=== PATIENT | male | born 1955 | race Native Hawaiian/Other Pacific Islander ===

== ENCOUNTER 2018-11-07 05:39 | Day surgery (SDC) | payer MEDICARE ==
[2018-11-07] MEDS ORDERED: Lactated Ringers 1,000 ML IV SCH (06:30)
[2018-11-07] MEDS ORDERED: Lactated Ringers 1,000 ML IV ONE (06:37)
[2018-11-07] MEDS ORDERED: Xopenex 1.25 MG/0.5 ML UD NEBULE IH ONE ×2 (06:41→06:49)
[2018-11-07] MEDS ORDERED: Sodium Chloride 3 ML UD NEBULES IH SCH (06:45)
[2018-11-07] MEDS ORDERED: Sodium Chloride 3 ML UD NEBULES IH ONE (06:49)
[2018-11-07] MEDS ORDERED: DIPRIVAN 200 MG/20 ML IV ONE (07:42)
[2018-11-07] MEDS ORDERED: Ketamine HCl 50 MG/ML ONE (07:43)
[2018-11-07 08:41] VITALS: O2SAT 93
[2018-11-07 09:03] VITALS: BP 124/80; PULSE 80
--- NOTE | 2018-11-07 10:48 | OP ---
SURGERY DATE/TIME: 11/07/2018 0753 PREOPERATIVE DIAGNOSIS: Change in bowel habits. POSTOPERATIVE DIAGNOSIS: Diverticulosis otherwise normal colon. PROCEDURE: Colonoscopy. SURGEON: Dr. Rodriguez. ANESTHESIA: MAC. Medications given by anesthesia department. HISTORY: The patient is a 63 year-old white male patient now with change in bowel habits. He was brought in for colonoscopic evaluation. It was noted in the outpatient area that the patient's O2 saturations were in the mid to high 80's. The patient reports that he knows his O2 saturations have been low. He has been told by a pulmonary doctor that he needs to wear oxygen but he refuses to do so. We optimized his oxygen levels with oxygen and CPAP. I discussed with the patient and his and they wished to proceed with the procedure. DESCRIPTION OF PROCEDURE: We brought the patient to endoscopy room and the patient was on CPAP. Anesthesia was then induced. The patient saturations did drop significantly just prior to the above treatments however it rebounded nicely within a few moments. The patient was placed in left lateral decubitus position. A digital rectal examination was performed and revealed a large but smooth prostate with no nodules. No other masses were felt. The sphincter tone was normal. The flexible Olympus pediatric colonoscope was used to intubate the rectum. A view of the colon was developed sequentially to the cecum. Upon insertion and withdrawal, including a retroflex view in the rectum was noted scattered diverticula but no other mucosal lesions. The scope was removed from the patient who tolerated the procedure well and was sent back to OP recovery in good condition, stable on supplemental oxygen. The prep was noted to be fair.
== END 2018-11-07 09:14 | disposition home or self-care (01) ==
LOC: SDC 05:39
PROVIDERS: ATTEND Family Medicine
DX: K57.30 Diverticulosis of large intestine without perforation or abscess without bleeding (principal); R19.4 Change in bowel habit; J44.9 Chronic obstructive pulmonary disease, unspecified; E11.9 Type 2 diabetes mellitus without complications; I10 Essential (primary) hypertension
CPT/HCPCS: 82962; 94150; 94250; 94640; 94660; J2704; A9270-GY

== ENCOUNTER 2018-11-26 10:48 | Inpatient (IN) | payer MEDICARE ==
[2018-11-26] MEDS ORDERED: DUONEB 0.5-3 MG/3 ml Neb IH ONE ×2 (11:25→11:35)
[2018-11-26] MEDS ORDERED: solu-MEDROL 125 MG IV ONE (11:25)
[2018-11-26] MEDS ORDERED: solu-MEDROL 125 MG ONE (11:28)
[2018-11-26 11:49] LABS: Absolute Neutrophil Ct (ANC) 4.74 (1.4-6.9); BASOPHIL % 0.1 % (0.0-0.4); Basophil (Absolute #) 0.01 (0-0.4); Eosinophil % 0.6 % (0.00-5.0); Eosinophil (Absolute #) 0.04 (0-0.5); Hematocrit 46.4 % (42-50); Hemoglobin 13.2 gm/dl (12.5-18.0); Lymphocyte (Absolute #) 1.26 (1.0-4.6); Lymphocytes % 18.9 % (24.0-44.0); Mean Cell Volume 79.5 fl (78-100); Mean Corpuscular Hemoglobin 22.6 pg (26-32); Mean Corpuscular Hgb Concent. 28.4 g/dl (32-36); Monocyte (Absolute #) 0.62 (0.0-1.3); Monocytes % 9.3 % (0.0-12.0); Neutrophil % 71.1 % (36.0-66.0); Platelet Count 146 K/mm3 (150-450); Red Blood Count 5.84 M/mm3 (4.1-5.6); Red Cell Distribution Width 20.2 % (11.5-14.0); White Blood Count 6.7 K/mm3 (4.0-10.5)
[2018-11-26 11:49] LABS: A-aADO2 94; ABG HEMOGLOBIN 12.6; ABG POTASSIUM 3.7 (3.5-5.1); ARTERIAL BLD GAS O2 SATURATION 93.7 % (95-100); ARTERIAL BLOOD GAS BASE EXCESS 9.4 (-2.0-2.0); ARTERIAL BLOOD GAS FIO2 32 %; ARTERIAL BLOOD GAS PO2 57 mmHg (75-100); ARTERIAL BLOOD GAS pH 7.38 (7.35-7.45); CARBOXYHEMOGLOBIN 14.2 % THgb (0.0-6.9); HCO3- 36.7 (22-28); HGB O2 SAT 80.5 g/dF (94-100); paO2 pAO1 0.38
[2018-11-26 11:50] LABS: ABG SITE RIGHT RADIAL; ALLEN TEST OK? YES; ARTERIAL BLOOD GAS PCO2 62 mmHg (35-45)
--- NOTE | 2018-11-26 11:58 | ERPHSYRPT ---
- History of Present Illness Time Seen by Provider: 11/26/18 11:22 Source: patient, family Exam Limitations: no limitations Patient Subjective Stated Complaint: Pt [facility], O2 was 79 at [facility], upon arrival to ER without O2 it was 84, states that it has been for the past week, hx of CHF Triage Nursing Assessment: Pt sent to ER from [facility] due to SOB, pt 84% on RA, +2 edema to bilateral lower extremeties, inspiratory wheezing on upper left lobe, denies pain Physician History: 63 years old male with history of congestive heart failure, hypertension, hyperlipidemia, diabetes mellitus, tobacco abuse, COPD present date ER with chief complaint of increasing shortness of breath for almost one week, more with activity and partial relief with resting, associated with increased wheezing and cough productive of clear to yellow sputum. he also reports b/l LE swelling and almost 12 lbs weight gain. no fever or chills. denies any chest pain or heaviness.per he is supposed to be on oxygen and CPAP but doesnt use. was at urgent care and sent in here for low oxygen in 70 %. on ER presentation sat was 81% . Timing/Duration: week(s) (1) Activities at Onset: activity Severity of Dyspnea-Max: severe Severity of Dyspnea-Current: moderate Modifying Factors: Improves With: activity, coughing, exertion, rest Associated Symptoms: cough, wheezing, heaviness, leg swelling Allergies/Adverse Reactions: No Known Drug Allergies Allergy (Verified 11/26/18 11:12) Home Medications: Allopurinol 300 mg [Zyloprim 300 mg] 300 mg PO DAILY 11/01/18 [History] Aspirin 81 mg PO DAILY 11/01/18 [History] Chlorthalidone 25 mg PO DAILY 11/01/18 [History] Cholecalciferol (Vitamin D3) [Vitamin D3] 2,000 unit PO DAILY 11/01/18 [History] Losartan Potassium 25 mg PO DAILY 11/01/18 [History] Metformin HCl 500 mg PO DAILY 11/01/18 [History] Omeprazole 20 mg PO DAILY 11/01/18 [History] Tamsulosin HCl 0.4 mg [Flomax 0.4 MG] 0.4 mg PO DAILY 11/01/18 [History] - Review of Systems Constitutional: Fatigue Eyes: No Symptoms Ears, Nose, & Throat: No Symptoms Respiratory: Cough, Dyspnea, Dyspnea on Exertion (WALKER), Wheezing Cardiac: Edema Abdominal/Gastrointestinal: No Symptoms Musculoskeletal: No Symptoms Skin: No Symptoms Neurological: No Symptoms Psychological: No Symptoms Endocrine: No Symptoms Hematologic/Lymphatic: No Symptoms - Past Medical History Pertinent Past Medical History: Yes Cardiac History: Hypertension Respiratory History: COPD Endocrine Medical History: Diabetes Type II Musculoskeletal History: Degenerative Disk Disease, Other History: Other Male Reproductive Disorders: Prostate Problems Other Medical History: polycythemiavera, too much protein in urine - Past Surgical History Past Surgical History: Yes Cardiac: Cardiac Catheterization Musculoskeletal: Joint Replacement, Orthopedic Surgery Other Surgical History: knees, shoulders - Social History Smoking Status: Current every day smoker How long have you smoked: 57 years Exposure to second hand smoke: Yes Drug Use: none Patient Lives Alone: No - Nursing Vital Signs Nursing Vital Signs: Initial Vital Signs Temperature 98.4 F 11/26/18 10:57 Pulse Rate 100 H 11/26/18 10:57 Respiratory Rate 17 11/26/18 10:57 Blood Pressure 119/83 11/26/18 10:57 O2 Sat by Pulse Oximetry 87 L 11/26/18 10:57 Pain Scale Pain Intensity 0 - Physical Exam General Appearance: moderate distress Eye Exam: PERRL/EOMI, eyes nml inspection Ears, Nose, Throat Exam: hearing grossly normal, normal ENT inspection, normal pharynx Neck Exam: normal inspection, non-tender, supple, full range of motion Respiratory Exam: normal breath sounds, respiratory distress, diminished breath sounds, accessory muscle use, rhonchi, wheezing Cardiovascular/Chest Exam: normal heart sounds, regular rate/rhythm, edema Abdominal/Gastrointestinal Exam: soft, normal bowel sounds, No tenderness, No distention Extremity Exam: non-tender, normal range of motion Neurologic Exam: alert, oriented x 3, cooperative Skin Exam: normal color SpO2 Interpretation: hypoxic, ABG ordered, O2 applied SpO2: 92 O2 Delivery: Nasal Cannula (3) - Course Nursing assessment & vital signs reviewed: Yes EKG Interpreted by Me: RATE (97), Right [place] Deviation, Other (ST depression inlead II,III with T wave inversions.) Ordered Tests: Active Orders 24 hr Category Date Time Status Up With Assistance TOLERATED Activity 11/26/18 12:58 Active Accucheck ACHS Care 11/26/18 12:58 Active Admit as Inpatient ROUTINE Care 11/26/18 12:59 Active 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 STAT Care 11/26/18 11:26 Active Code Status Order ROUTINE Care 11/26/18 12:59 Active IV Care Q6H Care 11/26/18 12:59 Active IV Insertion STAT Care 11/26/18 11:25 Active Implement CHF Pathway ROUTINE Care 11/26/18 12:59 Active Singh Knutson, Apply ROUTINE Care 11/26/18 12:58 Active Weight,Daily 0600 Care 11/26/18 12:59 Active 1800 Calorie ADA Diet 11/26/18 Dinner Active Low Sodium Diet 11/26/18 Dinner Active CHEST 1 VIEW (PORTABLE) Stat Exams 11/26/18 11:25 Taken ARTERIAL BLOOD GASES Stat Lab 11/26/18 11:43 Completed BLOOD CULTURE Stat Lab 11/26/18 11:45 Received BMP AM.LAB Lab 11/27/18 04:00 Ordered CBC AM.LAB Lab 11/27/18 04:00 Ordered CBC W DIFF Stat Lab 11/26/18 11:30 Completed CMP Stat Lab 11/26/18 11:30 Completed MAGNESIUM Stat Lab 11/26/18 11:30 Completed NT PRO BNP AM.LAB Lab 11/27/18 04:00 Ordered NT PRO BNP Stat Lab 11/26/18 11:30 Completed TROPONIN Q3H Lab 11/26/18 11:30 Completed TROPONIN Q3H Lab 11/26/18 14:30 Ordered TROPONIN Q3H Lab 11/26/18 17:30 Ordered TROPONIN Q3H Lab 11/26/18 20:30 Ordered TROPONIN Q3H Lab 11/26/18 23:30 Ordered Oxygen NASAL CANNULA 2 lpm RT 11/26/18 12:59 Active Peak Expiratory Flow Rate ONCE RT 11/26/18 11:53 Active Respiratory Therapy Assessment DAILY RT 11/26/18 11:53 Active Medication Summary Generic Name Dose Route Start Last Admin Trade Name Freq PRN Reason Stop Dose Admin Albuterol/Ipratropium 3 ml 11/26/18 15:00 Duoneb 0.5-3 Mg/3 Ml Neb IH 12/26/18 14:59 Q4HRT NICK Levofloxacin/Dextrose 750 mg in 150 mls @ 100 mls/hr 11/26/18 12:34 11/26/18 12:42 Levofloxacin 750mg/150ml D5w IV 11/26/18 14:03 100 mls/hr STAT STA 100 mls/hr Administration Insulin Human Regular 0 unit 11/26/18 12:58 Novolin R SQ 12/26/18 12:57 UD PRN HYPERGLYCEMIA Discontinued Medications Generic Name Dose Route Start Last Admin Trade Name Freq PRN Reason Stop Dose Admin Albuterol/Ipratropium 3 ml 11/26/18 11:25 11/26/18 11:46 Duoneb 0.5-3 Mg/3 Ml Neb IH 11/26/18 11:26 3 ml STAT ONE Administration Albuterol/Ipratropium Confirm 11/26/18 11:35 Duoneb 0.5-3 Mg/3 Ml Neb Administered 11/26/18 11:36 Dose 3 ml IH .STK-MED ONE Aspirin 324 mg 11/26/18 12:12 11/26/18 12:29 Baby Aspirin 81 Mg Chew PO 11/26/18 12:13 324 mg STAT ONE Administration Aspirin Confirm 11/26/18 12:26 Baby Aspirin 81 Mg Chew Administered 11/26/18 12:27 Dose 324 mg .ROUTE .STK-MED ONE Furosemide 40 mg 11/26/18 12:11 11/26/18 12:30 Lasix 40 Mg/4 Ml IV 11/26/18 12:12 40 mg STAT ONE Administration Furosemide Confirm 11/26/18 12:28 Lasix 40 Mg/4 Ml Administered 11/26/18 12:29 Dose 40 mg .ROUTE .STK-MED ONE Levofloxacin/Dextrose Confirm 11/26/18 12:39 Levofloxacin 750mg/150ml D5w Administered 11/26/18 12:40 Dose 750 mg in 150 mls @ ud IV .STK-MED ONE Methylprednisolone Sodium Succinate 125 mg 11/26/18 11:25 11/26/18 11:30 Solu-Medrol 125 Mg IV 11/26/18 11:26 125 mg STAT ONE Administration Methylprednisolone Sodium Succinate Confirm 11/26/18 11:28 Solu-Medrol 125 Mg Administered 11/26/18 11:29 Dose 125 mg .ROUTE .STK-MED ONE Lab/Rad Data: Laboratory Result Diagrams 11/26/18 11:30 11/26/18 11:30 Laboratory Results 11/26/18 11/26/18 11/26/18 Range/Units 11:43 11:30 11:30 WBC (4.0-10.5) K/mm3 RBC (4.1-5.6) M/mm3 Hgb (12.5-18.0) gm/dl Hct (42-50) % MCV (78-100) fl MCH (26-32) pg MCHC (32-36) g/dl RDW (11.5-14.0) % Plt Count (150-450) K/mm3 Gran % (36.0-66.0) % Eos # (Auto) (0-0.5) Absolute Lymphs (auto) (1.0-4.6) Absolute Monos (auto) (0.0-1.3) Lymphocytes % (24.0-44.0) % Monocytes % (0.0-12.0) % Eosinophils % (0.00-5.0) % Basophils % (0.0-0.4) % Absolute Granulocytes (1.4-6.9) Basophils # (0-0.4) Puncture Site RIGHT RADIAL pCO2 62 H* (35-45) mmHg pO2 57 L (75-100) mmHg Base Excess 9.4 H (-2.0-2.0) O2 Saturation 80.5 L (94-100) g/dF ABG pH 7.38 (7.35-7.45) ABG HCO3 36.7 H* (22-28) ABG O2 Sat (Measured) 93.7 L (95-100) % Jordon Test YES A-a Gradient 94 a/A Ratio 0.38 Hemoglobin 12.6 Carboxyhemoglobin 14.2 H* (0.0-6.9) % THgb Methemoglobin 0.0 L (1.4-1.5) % Temperature 37.0 C POC O2 Flow Rate 32 % Sodium 140 (137-145) mmol/L Potassium 3.7 4.0 (3.5-5.1) mmol/L Chloride 96 L (98-107) mmol/L Carbon Dioxide 36 H (22-30) mmol/L Anion Gap 11.8 (5-15) MEQ/L BUN 26 H (9-20) mg/dL Creatinine 0.98 (0.66-1.25) mg/dL Estimated GFR > 60.0 ML/MIN Glucose 114 H (74-106) mg/dL Calcium 9.5 (8.4-10.2) mg/dL Magnesium 1.8 (1.6-2.3) mg/dL Total Bilirubin 0.60 (0.2-1.3) mg/dL AST 34 (17-59) U/L ALT 17 (0-50) U/L Alkaline Phosphatase 77 (38-126) U/L Troponin I 0.022 (0.000-0.034) ng/mL NT-Pro-B Natriuret Pep 1020 H (0-900) pg/mL Serum Total Protein 7.6 (6.3-8.2) g/dL Albumin 3.9 (3.5-5.0) g/dL Slides for Path Review 11/26/18 Range/Units 11:30 WBC 6.7 (4.0-10.5) K/mm3 RBC 5.84 H (4.1-5.6) M/mm3 Hgb 13.2 (12.5-18.0) gm/dl Hct 46.4 (42-50) % MCV 79.5 (78-100) fl MCH 22.6 L (26-32) pg MCHC 28.4 L (32-36) g/dl RDW 20.2 H (11.5-14.0) % Plt Count 146 L (150-450) K/mm3 Gran % 71.1 H (36.0-66.0) % Eos # (Auto) 0.04 (0-0.5) Absolute Lymphs (auto) 1.26 (1.0-4.6) Absolute Monos (auto) 0.62 (0.0-1.3) Lymphocytes % 18.9 L (24.0-44.0) % Monocytes % 9.3 (0.0-12.0) % Eosinophils % 0.6 (0.00-5.0) % Basophils % 0.1 (0.0-0.4) % Absolute Granulocytes 4.74 (1.4-6.9) Basophils # 0.01 (0-0.4) Puncture Site pCO2 (35-45) mmHg pO2 (75-100) mmHg Base Excess (-2.0-2.0) O2 Saturation (94-100) g/dF ABG pH (7.35-7.45) ABG HCO3 (22-28) ABG O2 Sat (Measured) (95-100) % Jordon Test A-a Gradient a/A Ratio Hemoglobin Carboxyhemoglobin (0.0-6.9) % THgb Methemoglobin (1.4-1.5) % Temperature C POC O2 Flow Rate % Sodium (137-145) mmol/L Potassium (3.5-5.1) mmol/L Chloride (98-107) mmol/L Carbon Dioxide (22-30) mmol/L Anion Gap (5-15) MEQ/L BUN (9-20) mg/dL Creatinine (0.66-1.25) mg/dL Estimated GFR ML/MIN Glucose (74-106) mg/dL Calcium (8.4-10.2) mg/dL Magnesium (1.6-2.3) mg/dL Total Bilirubin (0.2-1.3) mg/dL AST (17-59) U/L ALT (0-50) U/L Alkaline Phosphatase (38-126) U/L Troponin I (0.000-0.034) ng/mL NT-Pro-B Natriuret Pep (0-900) pg/mL Serum Total Protein (6.3-8.2) g/dL Albumin (3.5-5.0) g/dL Slides for Path Review YES - Progress Progress: improved, re-examined Air Movement: fair Progress Note: 63 years old is evaluated for increasing shortness of breath and hypoxia. Patient is placed on oxygen, given breathing treatments Solu-Medrol,, and evaluation and wheezing is much better. Patient is maintaining oxygen around 93 % on 3 L. feeling much improved on reevaluation. He is also given a dose of Lasix. Chest x-ray consistent with pulmonary edema with cardiomegaly suggesting congestive heart failure. EKG did not show any acute ST elevations , negative initial troponins. Part of his symptoms are congestive heart failure along with COPD exacerbation and have given him a dose of antibiotic as well. Discussed with Dr. Pedraza & patient is being admitted. 11/26/18 13:00 Blood Culture(s) Obtained: Yes Antibiotics given: Yes Discussed with : Adebayo Will see patient in: hospital (full admit) Counseled pt/family regarding: lab results, diagnosis, rad results, smoking cessation - Departure Departure Disposition: In-patient Admission Clinical Impression: COPD exacerbation Acute exacerbation of CHF (congestive heart failure) Qualifiers: Heart failure type: unspecified Qualified Code(s): I50.9 - Heart failure, unspecified Respiratory failure Qualifiers: Chronicity: acute Respiratory failure complication: hypoxia and hypercapnia Qualified Code(s): J96.01 - Acute respiratory failure with hypoxia Condition: Stable Critical Care Time: No
[2018-11-26 12:06] LABS: ALBUMIN 3.9 g/dL (3.5-5.0); ALKALINE PHOSPHATASE 77 U/L (38-126); ANION GAP 11.8 MEQ/L (5-15); BLOOD UREA NITROGEN 26 mg/dL (9-20); CHLORIDE 96 mmol/L (98-107); Calcium 9.5 mg/dL (8.4-10.2); Carbon Dioxide 36 mmol/L (22-30); Creatinine 1 0.98 mg/dL (0.66-1.25); Glucose 114 mg/dL (74-106); MAGNESIUM 1.8 mg/dL (1.6-2.3); NT PRO BNP 1020 pg/mL (0-900); SGOT/AST 34 U/L (17-59); SGPT/ALT 17 U/L (0-50); SODIUM 140 mmol/L (137-145); Total Protein 7.6 g/dL (6.3-8.2)
[2018-11-26] MEDS ORDERED: Lasix 40 MG/4 ML IV ONE (12:11)
[2018-11-26] MEDS ORDERED: BABY ASPIRIN 81 MG CHEW PO ONE (12:12)
[2018-11-26 12:24] LABS: Slide Review 1 YES
[2018-11-26] MEDS ORDERED: BABY ASPIRIN 81 MG CHEW ONE (12:26)
[2018-11-26] MEDS ORDERED: Lasix 40 MG/4 ML ONE (12:28)
[2018-11-26] MEDS ORDERED: LEVOFLOXACIN 750MG/150ML D5W 750 MG/150 ML BAG IV STA (12:34)
[2018-11-26] MEDS ORDERED: LEVOFLOXACIN 750MG/150ML D5W 750 MG/150 ML BAG IV ONE (12:39)
[2018-11-26] MEDS: Nicoderm CQ 21 MG TOP SCH (14:39)
[2018-11-26] MEDS: DUONEB 0.5-3 MG/3 ml Neb IH SCH (14:57)
[2018-11-26] MEDS: solu-MEDROL 125 MG IV SCH ×2 (17:26→23:50)
[2018-11-26] MEDS: NovoLIN R SQ PRN ×2 (17:26→23:45)
[2018-11-26] MEDS ORDERED: solu-CORTEF 100MG IV SCH ×2 (18:00→20:00)
--- NOTE | 2018-11-26 21:12 | XRAY ---
Indication: Short of breath. Comparison: None Portable chest demonstrates right midlung discoid infiltrate/atelectasis, left base fibrosis/scarring, cardiomegaly, and right hemidiaphragm elevation. Bony thorax intact with mild degenerative changes.
[2018-11-27] MEDS: DUONEB 0.5-3 MG/3 ml Neb IH SCH ×7 (05:44→22:35)
[2018-11-27] MEDS: solu-MEDROL 125 MG IV SCH ×4 (06:05→23:52)
[2018-11-27 06:06] LABS: Hematocrit 44.8 % (42-50); Hemoglobin 12.6 gm/dl (12.5-18.0); Mean Cell Volume 79.7 fl (78-100); Mean Corpuscular Hemoglobin 22.4 pg (26-32); Mean Corpuscular Hgb Concent. 28.1 g/dl (32-36); Mean Platelet Volume 11.4 fl (6-9.5); Platelet Count 156 K/mm3 (150-450); Red Blood Count 5.62 M/mm3 (4.1-5.6); Red Cell Distribution Width 19.8 % (11.5-14.0); White Blood Count 4.2 K/mm3 (4.0-10.5)
[2018-11-27 06:32] LABS: ANION GAP 12.2 MEQ/L (5-15); BLOOD UREA NITROGEN 28 mg/dL (9-20); CHLORIDE 95 mmol/L (98-107); Calcium 9.2 mg/dL (8.4-10.2); Carbon Dioxide 37 mmol/L (22-30); Creatinine 1 1.05 mg/dL (0.66-1.25); Glucose 165 mg/dL (74-106); NT PRO BNP 661 pg/mL (0-900); Potassium 4.4 mmol/L (3.5-5.1); SODIUM 139 mmol/L (137-145)
[2018-11-27 07:01] LABS: Slide Review YES
[2018-11-27] MEDS: NovoLIN R SQ PRN ×3 (08:28→20:37)
--- NOTE | 2018-11-27 08:46 | PCM.HP ---
History of Present Illness - Chief Complaint Chief Complaint: CHF History of Present Illness: is a 63 year old male with no local physician, sees a doctor in [place] but recently had a colonoscopy by Dr Rodriguez and is planning to switch to him. He reported to the ER complaining of shortness of breath and swelling, he has a history of chf and per records sees Dr Thomas, he also has copd but has refused his prescribed home oxygen and cpap. he has been diuresed and received antibiotics and steroids and is feeling much better at this time, his oxygen sats have been difficult to maintain by RT and he has refused multiple interventions but again is in no distress and seems to likely be nearing his baseline. - Review of Systems Constitutional: No Fever, No Chills Respiratory: Cough, Short Of Breath Cardiac: Edema, No Chest Pain, No Syncope Abdominal/Gastrointestinal: No Abdominal Pain, No Nausea, No Vomiting, No Diarrhea Skin: No Rash All Other Systems: Reviewed and Negative Medications & Allergies Home Medications: Home Medication List Allopurinol 300 mg [Zyloprim 300 mg] 300 mg PO DAILY 11/01/18 [History Confirmed 11/26/18] Aspirin 81 mg PO DAILY 11/01/18 [History Confirmed 11/26/18] Chlorthalidone 25 mg PO DAILY 11/01/18 [History Confirmed 11/26/18] Cholecalciferol (Vitamin D3) [Vitamin D3] 2,000 unit PO DAILY 11/01/18 [History Confirmed 11/26/18] Losartan Potassium 25 mg PO DAILY 11/01/18 [History Confirmed 11/26/18] Metformin HCl 500 mg PO DAILY 11/01/18 [History Confirmed 11/26/18] Omeprazole 20 mg PO DAILY 11/01/18 [History Confirmed 11/26/18] Tamsulosin HCl 0.4 mg [Flomax 0.4 MG] 0.4 mg PO DAILY 11/01/18 [History Confirmed 11/26/18] Allergies/Adverse Reactions: Allergies Allergy/AdvReac Type Severity Reaction Status Date / Time No Known Drug Allergies Allergy Verified 11/26/18 11:12 - Past Medical History Past Medical History: Yes Cardiac History: Hypertension Respiratory History: COPD Endocrine Medical History: Diabetes Type II Musculoskelatal History: Degenerative Disk Disease, Other History: Other Male Reproductive Disorders: Prostate Problems Comment: polycythemiavera, too much protein in urine - Past Surgical History Past Surgical History: Yes Cardiac History: Cardiac Catheterization Musculskeletal Surgical Hx: Joint Replacement, Orthopedic Surgery Other Surgical History: knees, shoulders - Social History Smoking Status: Current every day smoker How long have you smoked: 57 years Exposure to second hand smoke: Yes Alcohol: Occasionally Drug Use: none - Physical Exam Vital Signs: Vital Signs - 24 hr Temp Pulse Resp BP Pulse Ox 11/27/18 07:08 98.8 F 101 H 24 128/68 91 L 11/27/18 07:00 96 H 16 93 L 11/27/18 04:00 98.3 F 105 H 19 136/73 91 L 11/27/18 00:00 98.8 F 110 H 18 121/53 92 L 11/26/18 23:10 111 H 19 89 L 11/26/18 20:00 98.4 F 108 H 17 121/76 92 L 11/26/18 16:09 93 L 11/26/18 16:00 98.8 F 109 H 18 137/80 93 L 11/26/18 15:00 105 H 21 90 L 11/26/18 13:42 92 L 11/26/18 13:40 91 L 11/26/18 13:28 98.1 F 103 H 22 134/83 89 L 11/26/18 12:29 100 H 16 133/82 88 L 11/26/18 11:53 100 H 20 94 L 11/26/18 10:57 98.4 F 100 H 17 119/83 92 L Oxygen-Last 24 hours O2 Percentage 6 Liters = 44% O2 Percentage 6 Liters = 44% O2 Percentage 6 Liters = 44% O2 Percentage 4 Liters = 36% O2 Percentage 2 Liters = 28% O2 Percentage 3 Liters = 32% O2 Percentage 2 Liters = 28% Oxygen Flowrate (L/min)-RT 12 Oxygen Flowrate (L/min)-RT 3 General Appearance: no apparent distress, obese Neurologic Exam: alert, oriented x 3, cooperative Respiratory Exam: prolonged expirations, crackles/rales, wheezing Cardiovascular Exam: regular rate/rhythm, normal heart sounds, normal peripheral pulses Gastrointestinal/Abdomen Exam: soft, normal bowel sounds, No tenderness, No mass Extremity Exam: normal inspection, normal range of motion, pelvis stable Skin Exam: normal color, warm, dry, No rash Results - Labs Lab/Micro Results: Accuchecks Date 11/26/18 Date 11/26/18 Time 21:00 Time 18:10 Accucheck Value: 197 Accucheck Value: 241 Lab Results-Last 24 Hours 11/26/18 11/26/18 11/26/18 Range/Units 11:30 11:30 11:30 WBC 6.7 (4.0-10.5) K/mm3 RBC 5.84 H (4.1-5.6) M/mm3 Hgb 13.2 (12.5-18.0) gm/dl Hct 46.4 (42-50) % MCV 79.5 (78-100) fl MCH 22.6 L (26-32) pg MCHC 28.4 L (32-36) g/dl RDW 20.2 H (11.5-14.0) % Plt Count 146 L (150-450) K/mm3 MPV (6-9.5) fl Gran % 71.1 H (36.0-66.0) % Eos # (Auto) 0.04 (0-0.5) Absolute Lymphs (auto) 1.26 (1.0-4.6) Absolute Monos (auto) 0.62 (0.0-1.3) Lymphocytes % 18.9 L (24.0-44.0) % Monocytes % 9.3 (0.0-12.0) % Eosinophils % 0.6 (0.00-5.0) % Basophils % 0.1 (0.0-0.4) % Absolute Granulocytes 4.74 (1.4-6.9) Basophils # 0.01 (0-0.4) Puncture Site pCO2 (35-45) mmHg pO2 (75-100) mmHg Base Excess (-2.0-2.0) O2 Saturation (94-100) g/dF ABG pH (7.35-7.45) ABG HCO3 (22-28) ABG O2 Sat (Measured) (95-100) % Jordon Test A-a Gradient a/A Ratio Hemoglobin Carboxyhemoglobin (0.0-6.9) % THgb Methemoglobin (1.4-1.5) % Temperature C POC O2 Flow Rate % Sodium 140 (137-145) mmol/L Potassium 4.0 (3.5-5.1) mmol/L Chloride 96 L (98-107) mmol/L Carbon Dioxide 36 H (22-30) mmol/L Anion Gap 11.8 (5-15) MEQ/L BUN 26 H (9-20) mg/dL Creatinine 0.98 (0.66-1.25) mg/dL Estimated GFR > 60.0 ML/MIN Glucose 114 H (74-106) mg/dL Calcium 9.5 (8.4-10.2) mg/dL Magnesium 1.8 (1.6-2.3) mg/dL Total Bilirubin 0.60 (0.2-1.3) mg/dL AST 34 (17-59) U/L ALT 17 (0-50) U/L Alkaline Phosphatase 77 (38-126) U/L Troponin I 0.022 (0.000-0.034) ng/mL NT-Pro-B Natriuret Pep 1020 H (0-900) pg/mL Serum Total Protein 7.6 (6.3-8.2) g/dL Albumin 3.9 (3.5-5.0) g/dL Slides for Path Review YES 11/26/18 11/26/18 11/26/18 Range/Units 11:43 14:33 17:30 WBC (4.0-10.5) K/mm3 RBC (4.1-5.6) M/mm3 Hgb (12.5-18.0) gm/dl Hct (42-50) % MCV (78-100) fl MCH (26-32) pg MCHC (32-36) g/dl RDW (11.5-14.0) % Plt Count (150-450) K/mm3 MPV (6-9.5) fl Gran % (36.0-66.0) % Eos # (Auto) (0-0.5) Absolute Lymphs (auto) (1.0-4.6) Absolute Monos (auto) (0.0-1.3) Lymphocytes % (24.0-44.0) % Monocytes % (0.0-12.0) % Eosinophils % (0.00-5.0) % Basophils % (0.0-0.4) % Absolute Granulocytes (1.4-6.9) Basophils # (0-0.4) Puncture Site RIGHT RADIAL pCO2 62 H* (35-45) mmHg pO2 57 L (75-100) mmHg Base Excess 9.4 H (-2.0-2.0) O2 Saturation 80.5 L (94-100) g/dF ABG pH 7.38 (7.35-7.45) ABG HCO3 36.7 H* (22-28) ABG O2 Sat (Measured) 93.7 L (95-100) % Jordon Test YES A-a Gradient 94 a/A Ratio 0.38 Hemoglobin 12.6 Carboxyhemoglobin 14.2 H* (0.0-6.9) % THgb Methemoglobin 0.0 L (1.4-1.5) % Temperature 37.0 C POC O2 Flow Rate 32 % Sodium (137-145) mmol/L Potassium 3.7 (3.5-5.1) mmol/L Chloride (98-107) mmol/L Carbon Dioxide (22-30) mmol/L Anion Gap (5-15) MEQ/L BUN (9-20) mg/dL Creatinine (0.66-1.25) mg/dL Estimated GFR ML/MIN Glucose (74-106) mg/dL Calcium (8.4-10.2) mg/dL Magnesium (1.6-2.3) mg/dL Total Bilirubin (0.2-1.3) mg/dL AST (17-59) U/L ALT (0-50) U/L Alkaline Phosphatase (38-126) U/L Troponin I 0.018 0.013 (0.000-0.034) ng/mL NT-Pro-B Natriuret Pep (0-900) pg/mL Serum Total Protein (6.3-8.2) g/dL Albumin (3.5-5.0) g/dL Slides for Path Review 11/26/18 11/26/18 11/27/18 Range/Units 20:30 23:18 05:32 WBC 4.2 (4.0-10.5) K/mm3 RBC 5.62 H (4.1-5.6) M/mm3 Hgb 12.6 (12.5-18.0) gm/dl Hct 44.8 (42-50) % MCV 79.7 (78-100) fl MCH 22.4 L (26-32) pg MCHC 28.1 L (32-36) g/dl RDW 19.8 H (11.5-14.0) % Plt Count 156 (150-450) K/mm3 MPV 11.4 H (6-9.5) fl Gran % (36.0-66.0) % Eos # (Auto) (0-0.5) Absolute Lymphs (auto) (1.0-4.6) Absolute Monos (auto) (0.0-1.3) Lymphocytes % (24.0-44.0) % Monocytes % (0.0-12.0) % Eosinophils % (0.00-5.0) % Basophils % (0.0-0.4) % Absolute Granulocytes (1.4-6.9) Basophils # (0-0.4) Puncture Site pCO2 (35-45) mmHg pO2 (75-100) mmHg Base Excess (-2.0-2.0) O2 Saturation (94-100) g/dF ABG pH (7.35-7.45) ABG HCO3 (22-28) ABG O2 Sat (Measured) (95-100) % Jordon Test A-a Gradient a/A Ratio Hemoglobin Carboxyhemoglobin (0.0-6.9) % THgb Methemoglobin (1.4-1.5) % Temperature C POC O2 Flow Rate % Sodium (137-145) mmol/L Potassium (3.5-5.1) mmol/L Chloride (98-107) mmol/L Carbon Dioxide (22-30) mmol/L Anion Gap (5-15) MEQ/L BUN (9-20) mg/dL Creatinine (0.66-1.25) mg/dL Estimated GFR ML/MIN Glucose (74-106) mg/dL Calcium (8.4-10.2) mg/dL Magnesium (1.6-2.3) mg/dL Total Bilirubin (0.2-1.3) mg/dL AST (17-59) U/L ALT (0-50) U/L Alkaline Phosphatase (38-126) U/L Troponin I 0.013 < 0.012 (0.000-0.034) ng/mL NT-Pro-B Natriuret Pep (0-900) pg/mL Serum Total Protein (6.3-8.2) g/dL Albumin (3.5-5.0) g/dL Slides for Path Review YES 11/27/18 Range/Units 05:32 WBC (4.0-10.5) K/mm3 RBC (4.1-5.6) M/mm3 Hgb (12.5-18.0) gm/dl Hct (42-50) % MCV (78-100) fl MCH (26-32) pg MCHC (32-36) g/dl RDW (11.5-14.0) % Plt Count (150-450) K/mm3 MPV (6-9.5) fl Gran % (36.0-66.0) % Eos # (Auto) (0-0.5) Absolute Lymphs (auto) (1.0-4.6) Absolute Monos (auto) (0.0-1.3) Lymphocytes % (24.0-44.0) % Monocytes % (0.0-12.0) % Eosinophils % (0.00-5.0) % Basophils % (0.0-0.4) % Absolute Granulocytes (1.4-6.9) Basophils # (0-0.4) Puncture Site pCO2 (35-45) mmHg pO2 (75-100) mmHg Base Excess (-2.0-2.0) O2 Saturation (94-100) g/dF ABG pH (7.35-7.45) ABG HCO3 (22-28) ABG O2 Sat (Measured) (95-100) % Jordon Test A-a Gradient a/A Ratio Hemoglobin Carboxyhemoglobin (0.0-6.9) % THgb Methemoglobin (1.4-1.5) % Temperature C POC O2 Flow Rate % Sodium 139 (137-145) mmol/L Potassium 4.4 (3.5-5.1) mmol/L Chloride 95 L (98-107) mmol/L Carbon Dioxide 37 H (22-30) mmol/L Anion Gap 12.2 (5-15) MEQ/L BUN 28 H (9-20) mg/dL Creatinine 1.05 (0.66-1.25) mg/dL Estimated GFR > 60.0 ML/MIN Glucose 165 H (74-106) mg/dL Calcium 9.2 (8.4-10.2) mg/dL Magnesium (1.6-2.3) mg/dL Total Bilirubin (0.2-1.3) mg/dL AST (17-59) U/L ALT (0-50) U/L Alkaline Phosphatase (38-126) U/L Troponin I (0.000-0.034) ng/mL NT-Pro-B Natriuret Pep 661 (0-900) pg/mL Serum Total Protein (6.3-8.2) g/dL Albumin (3.5-5.0) g/dL Slides for Path Review Accuchecks Date 11/26/18 Date 11/26/18 Time 21:00 Time 18:10 Accucheck Value: 197 Accucheck Value: 241 - Radiology Impressions Radiology Exams & Impressions: Radiology Procedures Category Date Time Status CHEST 1 VIEW (PORTABLE) Stat Exams 11/26/18 11:25 Completed - Other Procedures and Tests Respiratory Therapy 11/26/18 11:53 Peak Expiratory Flow Rate ONCE Respiratory Therapy Assessment DAILY 11/26/18 12:59 Oxygen NASAL CANNULA 2 lpm 11/26/18 13:46 Smoking Cessation Education ONCE 11/27/18 02:30 BiPap/CPAP ROUTINE Assessment/Plan (1) COPD exacerbation Current Visit: Yes Status: Acute Assessment & Plan: continue nebs, Iv solu medrol and levaquin. patient reports improvement in symptoms. discussed need for compliance with home oxygen and recommendations etc. Code(s): J44.1 - CHRONIC OBSTRUCTIVE PULMONARY DISEASE W (ACUTE) EXACERBATION (2) Acute exacerbation of CHF (congestive heart failure) Current Visit: Yes Status: Acute Qualifiers: Heart failure type: unspecified Qualified Code(s): I50.9 - Heart failure, unspecified Assessment & Plan: appears euvolemic currently, had good diuresis and bnp is in normal range today. Code(s): I50.9 - HEART FAILURE, UNSPECIFIED (3) Diabetes mellitus Current Visit: Yes Status: Acute Code(s): E11.9 - TYPE 2 DIABETES MELLITUS WITHOUT COMPLICATIONS (4) Chronic hypoxemic respiratory failure Current Visit: Yes Status: Acute
[2018-11-27] MEDS: LEVOFLOXACIN 750MG/150ML D5W 750 MG/150 ML BAG IV SCH (09:35)
[2018-11-27] MEDS: ENOXAPARIN SODIUM SQ SCH (10:24)
[2018-11-27] MEDS: Protonix 40MG Tablet PO SCH (10:24)
[2018-11-27] MEDS: Cozaar 50 MG PO SCH (10:24)
[2018-11-27] MEDS: VITAMIN D PO SCH (10:24)
[2018-11-27] MEDS: Flomax 0.4 MG PO SCH (10:24)
[2018-11-27] MEDS: ECOTRIN 81 MG PO SCH (10:24)
[2018-11-27] MEDS: ZYLOPRIM 300 MG PO SCH (10:24)
[2018-11-27] MEDS: hydroDIURIL 25 MG PO SCH (10:43)
[2018-11-27] MEDS: Nicoderm CQ 21 MG TOP SCH (15:13)
[2018-11-28] MEDS: DUONEB 0.5-3 MG/3 ml Neb IH SCH ×6 (02:59→23:32)
[2018-11-28 04:51] LABS: Basophil (Absolute #) 0 (0-0.4); Eosinophil % 0.1 % (0.00-5.0); Eosinophil (Absolute #) 0.01 (0-0.5); Hematocrit 44.6 % (42-50); Hemoglobin 12.4 gm/dl (12.5-18.0); Lymphocyte (Absolute #) 0.28 (1.0-4.6); Lymphocytes % 2.9 % (24.0-44.0); Mean Cell Volume 81.7 fl (78-100); Mean Corpuscular Hemoglobin 22.7 pg (26-32); Mean Corpuscular Hgb Concent. 27.8 g/dl (32-36); Mean Platelet Volume 10.9 fl (6-9.5); Monocyte (Absolute #) 0.23 (0.0-1.3); Monocytes % 2.4 % (0.0-12.0); Neutrophil % 94.6 % (36.0-66.0); Platelet Count 159 K/mm3 (150-450); Red Blood Count 5.46 M/mm3 (4.1-5.6); Red Cell Distribution Width 20.1 % (11.5-14.0); White Blood Count 9.7 K/mm3 (4.0-10.5)
[2018-11-28 05:23] LABS: ANION GAP 12.1 MEQ/L (5-15); Calcium 9.3 mg/dL (8.4-10.2); Creatinine 1 1.34 mg/dL (0.66-1.25); Potassium 5.2 mmol/L (3.5-5.1)
[2018-11-28] MEDS: solu-MEDROL 125 MG IV SCH ×4 (06:06→23:57)
[2018-11-28 07:49] LABS: Slide Review 1 YES
--- NOTE | 2018-11-28 08:18 | PCM.NOTE ---
Date and Time: 11/28/18815 Subjective Assessment: cough and wheezing are improved, still with significant oxygen requirement and swelling in hands and feet Objective Exam General Appearance: no apparent distress, obese Neurologic Exam: alert, oriented x 3 Respiratory Exam: normal breath sounds, lungs clear, No respiratory distress Cardiovascular Exam: regular rate/rhythm, normal heart sounds Extremity Exam: swelling (2+pitting BLE edema) OBJECTIVE DATA Vital Signs: Vital Signs - 24 hr Temp Pulse Resp BP Pulse Ox 11/28/18 07:09 97.8 F 90 18 110/56 92 L 11/28/18 06:54 96 H 16 92 L 11/28/18 04:00 97.7 F 95 H 17 97/56 90 L 11/28/18 00:00 97.7 F 106 H 18 98/55 91 L 11/27/18 22:36 106 H 18 91 L 11/27/18 19:53 98.4 F 98 H 15 98/56 88 L 11/27/18 19:18 101 H 18 90 L 11/27/18 16:00 98.3 F 100 H 24 130/59 87 L 11/27/18 11:59 99.4 F 102 H 21 117/62 90 L 11/27/18 10:52 90 L 11/27/18 10:45 102 H 20 84 L Oxygen-Last 24 hours Oxygen Flowrate (L/min)-RT 8 Oxygen Flowrate (L/min)-RT 8 Oxygen Flowrate (L/min)-RT 8 Oxygen Flowrate (L/min)-RT 8 Oxygen Flowrate (L/min)-RT 8 Pain Assessment - Last Documented Pain Intensity 0 [facility] Scale [facility] Intake and Output: Intake & Output 11/25/18 11/26/18 11/27/18 11/28/18 11:59 11:59 11:59 11:59 Intake Total 1560 1220 Output Total 5200 1850 Balance -3640 -630 Weight 131.542 kg 127.1 kg Lab Results: Accuchecks Date 11/27/18 Date 11/27/18 Time 16:30 Time 11:30 Accucheck Value: 194 Accucheck Value: 133 Accucheck Value: 196 Lab Results-Last 24 Hours 11/28/18 11/28/18 Range/Units 04:25 04:25 WBC 9.7 (4.0-10.5) K/mm3 RBC 5.46 (4.1-5.6) M/mm3 Hgb 12.4 L (12.5-18.0) gm/dl Hct 44.6 (42-50) % MCV 81.7 (78-100) fl MCH 22.7 L (26-32) pg MCHC 27.8 L (32-36) g/dl RDW 20.1 H (11.5-14.0) % Plt Count 159 (150-450) K/mm3 MPV 10.9 H (6-9.5) fl Gran % 94.6 H (36.0-66.0) % Eos # (Auto) 0.01 (0-0.5) Absolute Lymphs (auto) 0.28 L (1.0-4.6) Absolute Monos (auto) 0.23 (0.0-1.3) Lymphocytes % 2.9 L (24.0-44.0) % Monocytes % 2.4 (0.0-12.0) % Eosinophils % 0.1 (0.00-5.0) % Basophils % 0.0 (0.0-0.4) % Absolute Granulocytes 9.20 H (1.4-6.9) Basophils # 0 (0-0.4) Sodium 138 (137-145) mmol/L Potassium 5.2 H (3.5-5.1) mmol/L Chloride 92 L (98-107) mmol/L Carbon Dioxide 38 H (22-30) mmol/L Anion Gap 12.1 (5-15) MEQ/L BUN 43 H (9-20) mg/dL Creatinine 1.34 H (0.66-1.25) mg/dL Estimated GFR 56.9 ML/MIN Glucose 179 H (74-106) mg/dL Calcium 9.3 (8.4-10.2) mg/dL Slides for Path Review YES Radiology Exams: Radiology Procedures Category Date Time Status CHEST 1 VIEW (PORTABLE) Stat Exams 11/26/18 11:25 Completed Multi-Disciplinary Progress Notes: Multi-Disciplinary Progress Notes 11/27/18 08:45 (created 11/27/18 10:21) Respiratory Note by Jesika Winston CPO VIA TELEMETRY CANCELLED AND CHANGED TO SPOT CHECK PER DR. WILLOUGHBY V/O. NURSE AWARE. Initialized on 11/27/18 10:21 - END OF NOTE Assessment/Plan (1) COPD exacerbation Current Visit: Yes Status: Acute Assessment & Plan: clinically improved, discussed will likely need oxygen at home. was prescribed in the past but he refused to use it and currently does not have supplies Code(s): J44.1 - CHRONIC OBSTRUCTIVE PULMONARY DISEASE W (ACUTE) EXACERBATION (2) Acute exacerbation of CHF (congestive heart failure) Current Visit: Yes Status: Acute Qualifiers: Heart failure type: unspecified Qualified Code(s): I50.9 - Heart failure, unspecified Assessment & Plan: lasix 40mg IV q12 hrs Code(s): I50.9 - HEART FAILURE, UNSPECIFIED (3) Diabetes mellitus Current Visit: Yes Status: Acute Code(s): E11.9 - TYPE 2 DIABETES MELLITUS WITHOUT COMPLICATIONS (4) Chronic hypoxemic respiratory failure Current Visit: Yes Status: Acute
[2018-11-28] MEDS: Lasix 40 MG/4 ML IV SCH ×2 (08:31→21:05)
[2018-11-28] MEDS ORDERED: NON-FORMULARY ITEM (Cholecalciferol (Vitamin D3) [Vitamin D3] 2,000 UNIT) PO SCH (10:00)
[2018-11-28] MEDS ORDERED: NON-FORMULARY ITEM (Omeprazole [Omeprazole] 20 MG) PO SCH (10:00)
[2018-11-28] MEDS ORDERED: NON-FORMULARY ITEM (Aspirin [Aspirin] 81 MG) PO SCH (10:00)
[2018-11-28] MEDS ORDERED: NON-FORMULARY ITEM (Losartan Potassium [Losartan Potassium] 25 MG) PO SCH (10:00)
[2018-11-28] MEDS: Cozaar 50 MG PO SCH (10:19)
[2018-11-28] MEDS: ENOXAPARIN SODIUM SQ SCH (10:19)
[2018-11-28] MEDS: LEVOFLOXACIN 750MG/150ML D5W 750 MG/150 ML BAG IV SCH (10:19)
[2018-11-28] MEDS: VITAMIN D PO SCH (10:19)
[2018-11-28] MEDS: Protonix 40MG Tablet PO SCH (10:21)
[2018-11-28] MEDS: ECOTRIN 81 MG PO SCH (10:21)
[2018-11-28] MEDS: ZYLOPRIM 300 MG PO SCH (10:21)
[2018-11-28] MEDS: hydroDIURIL 25 MG PO SCH (10:21)
[2018-11-28] MEDS: Flomax 0.4 MG PO SCH (10:21)
[2018-11-28] MEDS: NovoLIN R SQ PRN ×3 (11:37→21:04)
[2018-11-28] MEDS: Nicoderm CQ 21 MG TOP SCH (14:35)
[2018-11-28] MEDS ORDERED: Sodium Chloride 0.9% 10 ML FLUSH Syringe IV PRN (20:35)
[2018-11-28] MEDS: Sodium Chloride 0.9% 10 ML FLUSH Syringe IV SCH (21:05)
[2018-11-29] MEDS: DUONEB 0.5-3 MG/3 ml Neb IH SCH ×7 (03:29→22:50)
[2018-11-29 04:56] LABS: Absolute Neutrophil Ct (ANC) 11.74 (1.4-6.9); BASOPHIL % 0.1 % (0.0-0.4); Basophil (Absolute #) 0.01 (0-0.4); Eosinophil % 0.1 % (0.00-5.0); Eosinophil (Absolute #) 0.01 (0-0.5); Hematocrit 43.2 % (42-50); Hemoglobin 12.1 gm/dl (12.5-18.0); Lymphocyte (Absolute #) 0.32 (1.0-4.6); Lymphocytes % 2.6 % (24.0-44.0); Mean Cell Volume 80.6 fl (78-100); Mean Platelet Volume 11.2 fl (6-9.5); Monocyte (Absolute #) 0.21 (0.0-1.3); Monocytes % 1.7 % (0.0-12.0); Neutrophil % 95.5 % (36.0-66.0); Platelet Count 160 K/mm3 (150-450); Red Blood Count 5.36 M/mm3 (4.1-5.6); Red Cell Distribution Width 20.2 % (11.5-14.0); White Blood Count 12.3 K/mm3 (4.0-10.5)
[2018-11-29 04:58] LABS: Mean Corpuscular Hemoglobin 22.5 pg (26-32)
[2018-11-29 05:07] LABS: Calcium 9.4 mg/dL (8.4-10.2); Creatinine 1 1.38 mg/dL (0.66-1.25); Potassium 4.7 mmol/L (3.5-5.1)
[2018-11-29 05:13] LABS: ANION GAP 11.7 MEQ/L (5-15)
[2018-11-29 05:36] LABS: Slide Review 1 YES
[2018-11-29] MEDS: solu-MEDROL 125 MG IV SCH ×4 (05:48→23:45)
[2018-11-29] MEDS: Sodium Chloride 0.9% 10 ML FLUSH Syringe IV SCH ×3 (05:54→22:23)
[2018-11-29] MEDS: Lasix 40 MG/4 ML IV SCH (07:30)
[2018-11-29] MEDS: ENOXAPARIN SODIUM SQ SCH (08:55)
[2018-11-29] MEDS: NovoLIN R SQ PRN ×4 (08:56→22:22)
[2018-11-29] MEDS: VITAMIN D PO SCH (09:00)
[2018-11-29] MEDS: Flomax 0.4 MG PO SCH (09:01)
[2018-11-29] MEDS: ZYLOPRIM 300 MG PO SCH (09:01)
[2018-11-29] MEDS: Cozaar 50 MG PO SCH (09:02)
[2018-11-29] MEDS: ECOTRIN 81 MG PO SCH (09:02)
[2018-11-29] MEDS: Protonix 40MG Tablet PO SCH (09:03)
[2018-11-29] MEDS: hydroDIURIL 25 MG PO SCH (09:03)
[2018-11-29] MEDS: LEVOFLOXACIN 750MG/150ML D5W 750 MG/150 ML BAG IV SCH (09:42)
--- NOTE | 2018-11-29 12:07 | PCM.NOTE ---
Date and Time: 11/29/18 1204 Subjective Assessment: Pt has O2 off in order to eat breakfast. He would like to go home. Has a hard time sleeping, he tells me due to the uncomfortable bed, but he told the RN it was because he was up urinating too much. - Review of Systems Constitutional: No Fever Respiratory: Cough, Short Of Breath Objective Exam General Appearance: no apparent distress, alert, obese Neurologic Exam: oriented x 3, cooperative Skin Exam: normal color, warm, dry, No rash Ears, Nose, Throat Exam: moist mucous membranes Respiratory Exam: diminished breath sounds (fair air exchange), prolonged expirations, wheezing, No rhonchi Cardiovascular Exam: normal heart sounds, tachycardia, No murmur Gastrointestinal/Abdomen Exam: soft, normal bowel sounds, No tenderness Extremity Exam: swelling (1+ LE edema bilat) OBJECTIVE DATA Vital Signs: Vital Signs - 24 hr Temp Pulse Resp BP Pulse Ox 11/29/18 11:09 109 H 16 11/29/18 07:31 98.7 F 107 H 22 104/57 90 L 11/29/18 07:19 108 H 20 88 L 11/29/18 04:00 97.8 F 109 H 16 116/64 93 L 11/29/18 03:29 109 H 20 89 L 11/29/18 00:00 97.7 F 86 20 131/67 98 11/28/18 23:32 112 H 16 78 L 11/28/18 20:03 105 H 18 91 L 11/28/18 20:00 98.1 F 107 H 18 115/56 93 L 11/28/18 16:15 98.2 F 103 H 20 112/55 91 L Oxygen-Last 24 hours O2 Percentage 4 Liters = 36% Pain Assessment - Last Documented Pain Intensity 0 Pain [facility] Intake and Output: Intake & Output 11/27/18 11/28/18 11/29/18 11/30/18 11:59 11:59 11:59 11:59 Intake Total 1560 1580 1590 Output Total 5200 2920 5868 Balance -9995 -430 -7652 Weight 127.1 kg 127.5 kg 127.5 kg Lab Results: Accuchecks Date 11/28/18 Date 11/28/18 Time 21:30 Time 16:30 Accucheck Value: 180 Accucheck Value: 183 Accucheck Value: 205 Lab Results-Last 24 Hours 11/29/18 11/29/18 Range/Units 04:47 04:47 WBC 12.3 H (4.0-10.5) K/mm3 RBC 5.36 (4.1-5.6) M/mm3 Hgb 12.1 L (12.5-18.0) gm/dl Hct 43.2 (42-50) % MCV 80.6 (78-100) fl MCH 22.5 L (26-32) pg MCHC 28.0 L (32-36) g/dl RDW 20.2 H (11.5-14.0) % Plt Count 160 (150-450) K/mm3 MPV 11.2 H (6-9.5) fl Gran % 95.5 H (36.0-66.0) % Eos # (Auto) 0.01 (0-0.5) Absolute Lymphs (auto) 0.32 L (1.0-4.6) Absolute Monos (auto) 0.21 (0.0-1.3) Lymphocytes % 2.6 L (24.0-44.0) % Monocytes % 1.7 (0.0-12.0) % Eosinophils % 0.1 (0.00-5.0) % Basophils % 0.1 (0.0-0.4) % Absolute Granulocytes 11.74 H (1.4-6.9) Basophils # 0.01 (0-0.4) Sodium 139 (137-145) mmol/L Potassium 4.7 (3.5-5.1) mmol/L Chloride 93 L (98-107) mmol/L Carbon Dioxide 39 H (22-30) mmol/L Anion Gap 11.7 (5-15) MEQ/L BUN 60 H (9-20) mg/dL Creatinine 1.38 H (0.66-1.25) mg/dL Estimated GFR 55.0 ML/MIN Glucose 186 H (74-106) mg/dL Calcium 9.4 (8.4-10.2) mg/dL NT-Pro-B Natriuret Pep 335 (0-900) pg/mL Slides for Path Review YES Assessment/Plan (1) COPD exacerbation Current Visit: Yes Status: Acute Assessment & Plan: still on oximizer. Continue IV antibiotics (levaquin) and steroids (80mg IV q6h ). Code(s): J44.1 - CHRONIC OBSTRUCTIVE PULMONARY DISEASE W (ACUTE) EXACERBATION (2) Acute exacerbation of CHF (congestive heart failure) Current Visit: Yes Status: Acute Qualifiers: Heart failure type: unspecified Qualified Code(s): I50.9 - Heart failure, unspecified Assessment & Plan: His renal function is starting to dip so will change lasix from 20mg IV BID to 20mg po daily. Code(s): I50.9 - HEART FAILURE, UNSPECIFIED (3) Chronic hypoxemic respiratory failure Current Visit: Yes Status: Acute (4) Diabetes mellitus Current Visit: Yes Status: Acute Code(s): E11.9 - TYPE 2 DIABETES MELLITUS WITHOUT COMPLICATIONS
[2018-11-29] MEDS: Nicoderm CQ 21 MG TOP SCH (13:04)
[2018-11-30] MEDS: DUONEB 0.5-3 MG/3 ml Neb IH SCH ×6 (02:48→23:48)
[2018-11-30] MEDS: solu-MEDROL 125 MG IV SCH ×4 (06:37→23:10)
[2018-11-30] MEDS: Sodium Chloride 0.9% 10 ML FLUSH Syringe IV SCH ×3 (06:43→23:13)
[2018-11-30] MEDS: NovoLIN R SQ PRN ×2 (07:51→13:25)
[2018-11-30] MEDS: Protonix 40MG Tablet PO SCH (09:15)
[2018-11-30] MEDS: ECOTRIN 81 MG PO SCH (09:15)
[2018-11-30] MEDS: LEVOFLOXACIN 750MG/150ML D5W 750 MG/150 ML BAG IV SCH (09:15)
[2018-11-30] MEDS: hydroDIURIL 25 MG PO SCH (09:16)
[2018-11-30] MEDS: ZYLOPRIM 300 MG PO SCH (09:16)
[2018-11-30] MEDS: Cozaar 50 MG PO SCH (09:16)
[2018-11-30] MEDS: ENOXAPARIN SODIUM SQ SCH (09:25)
[2018-11-30] MEDS: VITAMIN D PO SCH (09:25)
[2018-11-30] MEDS: Flomax 0.4 MG PO SCH (09:25)
[2018-11-30] MEDS: LASIX 20 MG PO SCH (09:25)
--- NOTE | 2018-11-30 10:20 | PCM.NOTE ---
Date and Time: 11/30/18 1017 Subjective Assessment: patient reports his breathing is improved, doing well at this time and swelling is much better. overall he feels well, thinks he is at his baseline and wants to go home Objective Exam General Appearance: no apparent distress, obese Neurologic Exam: alert, oriented x 3 Respiratory Exam: normal breath sounds, lungs clear, No respiratory distress Cardiovascular Exam: regular rate/rhythm, normal heart sounds Gastrointestinal/Abdomen Exam: soft, No tenderness, No mass Extremity Exam: swelling (trace edema BLE< much improved) OBJECTIVE DATA Vital Signs: Vital Signs - 24 hr Temp Pulse Resp BP Pulse Ox 11/30/18 07:41 96.7 F 107 H 16 131/63 92 L 11/30/18 06:33 107 H 16 92 L 11/30/18 04:00 98.4 F 105 H 18 131/59 87 L 11/30/18 02:49 105 H 18 87 L 11/30/18 00:00 98.5 F 112 H 18 123/63 92 L 11/29/18 22:51 92 L 11/29/18 20:00 98.6 F 108 H 21 118/62 92 L 11/29/18 19:32 82 18 92 L 11/29/18 16:00 98.6 F 106 H 20 100/55 91 L 11/29/18 15:12 100 H 24 90 L 11/29/18 12:00 100.1 F 112 H 20 114/59 90 L 11/29/18 11:09 109 H 16 Oxygen-Last 24 hours Oxygen Flowrate (L/min)-RT 8 Oxygen Flowrate (L/min)-RT 8 Pain Assessment - Last Documented Pain Intensity 0 Pain Scale Used 0-10 Pain Scale Intake and Output: Intake & Output 11/27/18 11/28/18 11/29/18 11/30/18 11:59 11:59 11:59 11:59 Intake Total 1560 1580 1590 1934 Output Total 9230 0274 7631 5568 Balance -8703 -239 -3968 128 Weight 127.1 kg 127.5 kg 127.5 kg 127.4 kg Lab Results: Accuchecks Date 11/29/18 Time 20:30 Accucheck Value: 163 Accucheck Value: 244 Accucheck Value: 158 Accucheck Value: 249 Assessment/Plan (1) COPD exacerbation Current Visit: Yes Status: Acute Assessment & Plan: improved, will need to qualifty for home oxygen and attempt to wean to cannula or oxymizer in effort to prepare for discharge. stressed compliance with oxygen Code(s): J44.1 - CHRONIC OBSTRUCTIVE PULMONARY DISEASE W (ACUTE) EXACERBATION (2) Acute exacerbation of CHF (congestive heart failure) Current Visit: Yes Status: Acute Qualifiers: Heart failure type: unspecified Qualified Code(s): I50.9 - Heart failure, unspecified Code(s): I50.9 - HEART FAILURE, UNSPECIFIED (3) Diabetes mellitus Current Visit: Yes Status: Acute Code(s): E11.9 - TYPE 2 DIABETES MELLITUS WITHOUT COMPLICATIONS (4) Chronic hypoxemic respiratory failure Current Visit: Yes Status: Acute
[2018-11-30] MEDS: Nicoderm CQ 21 MG TOP SCH (13:24)
[2018-12-01] MEDS: DUONEB 0.5-3 MG/3 ml Neb IH SCH ×3 (03:34→11:05)
[2018-12-01] MEDS: Sodium Chloride 0.9% 10 ML FLUSH Syringe IV SCH (06:04)
[2018-12-01] MEDS: solu-MEDROL 125 MG IV SCH ×2 (06:04→12:15)
[2018-12-01] MEDS: NovoLIN R SQ PRN ×2 (07:54→12:28)
--- NOTE | 2018-12-01 08:43 | PCM.DS ---
Discharge Summary Date of Admission: 11/26/18 13:20 Admitting Physician: YULY WILLOUGHBY Primary Care Provider: BOBBY MACK DO Allergies Allergies No Known Drug Allergies Allergy (Verified 11/26/18 11:12) Hospital Summary - Hospital Course Hospital Course: patient was admitted with cough, wheezing, shortness of breath and swelling in the legs. no new problems or concerns today, he follows with Dr Franco, has been quite stable during his stay. diuresed very well and requiring high amounts of oxygen but is well compensated and refused oxygen therapy in the past even though it was prescribed. patient had a colonoscopy recently with Dr Patel and was planning to transfer his care to him but hadn't made it in to see him yet - Vitals & Intake/Output Vital Signs: Vital Signs Temperature 98.7 F 12/01/18 07:50 Pulse Rate 100 H 12/01/18 07:50 Respiratory Rate 20 12/01/18 07:50 Blood Pressure 129/65 12/01/18 07:50 O2 Sat by Pulse Oximetry 89 L 12/01/18 07:50 Oxygen-Last Documented O2 Percentage 6 Liters = 44% Intake & Output: Intake & Output 11/28/18 11/29/18 11/30/18 12/01/18 11:59 11:59 11:59 11:59 Intake Total 1580 1590 1934 2114 Output Total 1850 4475 1025 1100 Balance -270 -2885 909 1014 Weight 127.5 kg 127.5 kg 127.4 kg - Lab Result Diagrams: 11/29/18 04:47 11/29/18 04:47 Lab Results-Last 24 Hrs: Accuchecks Date 11/30/18 Time 21:00 Accucheck Value: 261 Accucheck Value: 150 Accucheck Value: 260 Micro Results-Entire Visit: Microbiology 11/26/18 11:45 Blood Culture Gram Stain - Final Blood Not Reportable Blood Culture - Final NO GROWTH 11/26/18 11:35 Blood Culture Gram Stain - Final Blood Not Reportable Blood Culture - Final NO GROWTH Accuchecks Date 11/30/18 Time 21:00 Accucheck Value: 261 Accucheck Value: 150 Accucheck Value: 260 - Procedures and Test Procedures and Tests throughout Hospitalization: Therapy Orders & Screens 11/26/18 11:53 Peak Expiratory Flow Rate ONCE Comment: Reason For Exam: Respiratory Therapy Assessment DAILY Comment: 11/26/18 12:59 Oxygen NASAL CANNULA 2 lpm Comment: Diagnosis: CHF 11/26/18 13:46 Smoking Cessation Education ONCE Comment: Diagnosis: CHF Smoking Status: Current every day smoker How long have you smoked: 57 years Do you dip or chew tobacco: No Discharge Exam General Appearance: no apparent distress, obese Neurologic Exam: alert, oriented x 3 Respiratory Exam: normal breath sounds, lungs clear, No respiratory distress Cardiovascular Exam: regular rate/rhythm, normal heart sounds Gastrointestinal/Abdomen Exam: soft, No tenderness, No mass Extremity Exam: pedal edema, swelling (trace) Skin Exam: normal color, warm, dry Final Diagnosis/Problem List - Final Discharge Diagnosis/Problem (1) COPD exacerbation Current Visit: Yes Status: Acute Assessment & Plan: completed 5 day course of levaquin, home on po prednisone, duonebs and symbicort. will f/u with Dr Estrada as outpatient. Code(s): J44.1 - CHRONIC OBSTRUCTIVE PULMONARY DISEASE W (ACUTE) EXACERBATION (2) Acute exacerbation of CHF (congestive heart failure) Current Visit: Yes Status: Acute Assessment & Plan: will f/u with Dr Franco Code(s): I50.9 - HEART FAILURE, UNSPECIFIED (3) Diabetes mellitus Current Visit: Yes Status: Acute Code(s): E11.9 - TYPE 2 DIABETES MELLITUS WITHOUT COMPLICATIONS (4) Chronic hypoxemic respiratory failure Current Visit: Yes Status: Acute - Discharge Disposition: Home, Self-Care Condition: Stable Prescriptions: New Prednisone 20 mg [Deltasone 20 mg] 20 mg PO UD #18 tablet Albuterol/Ipratropium 3ml Neb* [DUONEB 0.5-3 MG/3 ml Neb] 3 ml IH Q4-6HPRN PRN #100 ampul.neb PRN Reason: Cough Nebulizer and Compressor [Easy Air Compressor Nebulizer] 1 each MC Q4-6HPRN PRN #1 each PRN Reason: Shortness Of Breath Potassium Chloride 10 Meq Tab* [Klor Con 10 MEQ] 10 meq PO DAILY #30 tab Furosemide 20 mg [Lasix 20 mg] 20 mg PO DAILY #30 tablet Budesonide/Formoterol Fumarate [Symbicort 160-4.5 Mcg Inhaler] 2 puffs IH BID #1 hfa.aer.ad Continue Aspirin 81 mg PO DAILY Tamsulosin HCl 0.4 mg [Flomax 0.4 MG] 0.4 mg PO DAILY Omeprazole 20 mg PO DAILY Chlorthalidone 25 mg PO DAILY Losartan Potassium 25 mg PO DAILY Metformin HCl 500 mg PO DAILY Allopurinol 300 mg [Zyloprim 300 mg] 300 mg PO DAILY Cholecalciferol (Vitamin D3) [Vitamin D3] 2,000 unit PO DAILY Follow up with: MOIZ PATEL [ACTIVE STAFF] - 1 Week ERICA ESTRADA [ACTIVE STAFF] - 1 Week SHANEKA FRANCO [CONSULTING PHYSICIAN] - 1 Week
[2018-12-01] MEDS: VITAMIN D PO SCH (09:18)
[2018-12-01] MEDS: ZYLOPRIM 300 MG PO SCH (09:18)
[2018-12-01] MEDS: Protonix 40MG Tablet PO SCH (09:18)
[2018-12-01] MEDS: ECOTRIN 81 MG PO SCH (09:18)
[2018-12-01] MEDS: LEVOFLOXACIN 750MG/150ML D5W 750 MG/150 ML BAG IV SCH (09:18)
[2018-12-01] MEDS: LASIX 20 MG PO SCH (09:18)
[2018-12-01] MEDS: Cozaar 50 MG PO SCH (09:18)
[2018-12-01] MEDS: hydroDIURIL 25 MG PO SCH (09:18)
[2018-12-01] MEDS: Flomax 0.4 MG PO SCH (09:18)
[2018-12-01] MEDS: ENOXAPARIN SODIUM SQ SCH (09:19)
[2018-12-01 11:33] VITALS: BP 142/68; PULSE 108; O2SAT 92
[2018-12-01] MEDS: Nicoderm CQ 21 MG TOP SCH (14:04)
== END 2018-12-01 14:36 | disposition home or self-care (01) | DRG 191 ==
LOC: ED 10:48 → MED SURG 13:20
PROVIDERS: ADMIT Family Medicine; ATTEND Family Medicine
DX: J44.1 Chronic obstructive pulmonary disease with (acute) exacerbation (principal); J96.11 Chronic respiratory failure with hypoxia; I50.9 Heart failure, unspecified; E11.9 Type 2 diabetes mellitus without complications; I10 Essential (primary) hypertension; D45 Polycythemia vera; F17.200 Nicotine dependence, unspecified, uncomplicated; Z79.899 Other long term (current) drug therapy
CPT/HCPCS: 36000; 36415; 36600; 71045; 80048; 80053; 82375; 82803; 82962; 83735; 83880; 84484; 85025; 85027; 87040; 93041; 93268; 94002; 94150; 94640; 94760; 94762; 96374; 96375; 99284; 99291; J1650; J1940; J1956; J2930; A9270-GY

== ENCOUNTER 2019-08-02 12:49 | Emergency (ER) | payer MEDICARE ==
[2019-08-02] MEDS ORDERED: solu-MEDROL 125 MG ONE (12:56)
[2019-08-02] MEDS ORDERED: DUONEB 0.5-3 MG/3 ml Neb IH ONE ×2 (12:57→12:58)
[2019-08-02] MEDS ORDERED: solu-MEDROL 125 MG IV ONE (12:58)
--- NOTE | 2019-08-02 13:06 | ERPHSYRPT ---
- History of Present Illness Time Seen by Provider: 08/02/19 12:51 Source: patient, family Exam Limitations: clinical condition Physician History: 64 years old male with history of metastatic lung cancer on chemotherapy actively last dose a week ago, COPD, chronic respiratory failure on 4 L oxygen with sats around 85% at baseline, diabetes mellitus presented in the ER with chief complaint of worsening respiratory distress feeling malaise, chills. On presentation his oxygen saturation is around 60s, placed on nonrebreather, breathing treatments followed by BiPAP. Per report patient has been having a downhill course for almost 1 week and is getting short of breath despite being on oxygen initially with activity and now at resting. He was also recently diagnosed with right lower extremity DVT and is on Lovenox shots. Has chronic cough productive of clear to yellow sputum moderate in amount which is not any change from usual. Denies any chest pain but mild tightness/discomfort. Denies any sick contact. No abdominal pain nausea or vomiting reported. Timing/Duration: week(s) (1), gradual onset, worse Activities at Onset: activity Severity of Dyspnea-Max: severe Severity of Dyspnea-Current: severe Modifying Factors: Improves With: activity Associated Symptoms: chest pain/discomfort, wheezing, weakness, chills, lightheadedness, No fever Allergies/Adverse Reactions: No Known Drug Allergies Allergy (Verified 08/02/19 13:12) Home Medications: Allopurinol 300 mg [Zyloprim 300 mg] 300 mg PO DAILY 11/01/18 [History] Aspirin 81 mg PO DAILY 11/01/18 [History] Cholecalciferol (Vitamin D3) [Vitamin D3] 1,000 unit PO DAILY 11/01/18 [History] Losartan Potassium 25 mg PO DAILY 11/01/18 [History] Metformin HCl 500 mg PO DAILY 11/01/18 [History] Omeprazole 20 mg PO DAILY 11/01/18 [History] Tamsulosin HCl 0.4 mg [Flomax 0.4 MG] 0.4 mg PO DAILY 11/01/18 [History] Enoxaparin Sodium 0.8 ml SQ Q12H 08/02/19 [History] Folic Acid 1 mg PO DAILY 08/02/19 [History] Magnesium Oxide [Magnesium] 400 mg PO DAILY 08/02/19 [History] dexAMETHasone [Dexamethasone] 4 mg PO CLARIFY 08/02/19 [History] - Review of Systems Constitutional: Chills, Fatigue Eyes: No Symptoms Ears, Nose, & Throat: No Symptoms Respiratory: Dyspnea, Dyspnea on Exertion (WALKER), Wheezing Cardiac: Palpitations, Orthopnea Abdominal/Gastrointestinal: No Symptoms Genitourinary Symptoms: No Symptoms Musculoskeletal: Myalgias Skin: No Symptoms Neurological: No Symptoms Psychological: No Symptoms Endocrine: No Symptoms Hematologic/Lymphatic: No Symptoms Immunological/Allergic: No Symptoms - Past Medical History Pertinent Past Medical History: Yes Cardiac History: Hypertension Respiratory History: COPD Endocrine Medical History: Diabetes Type II Musculoskeletal History: Degenerative Disk Disease, Other History: Other Male Reproductive Disorders: Prostate Problems Other Medical History: polycythemiavera, too much protein in urine - Past Surgical History Past Surgical History: Yes Cardiac: Cardiac Catheterization Musculoskeletal: Joint Replacement, Orthopedic Surgery Other Surgical History: knees, shoulders - Social History Smoking Status: Current every day smoker How long have you smoked: 57 years Exposure to second hand smoke: Yes Drug Use: none Patient Lives Alone: No - Nursing Vital Signs Nursing Vital Signs: Initial Vital Signs Temperature 100.1 F 08/02/19 12:50 Pulse Rate 118 H 08/02/19 12:50 Respiratory Rate 32 H 08/02/19 12:50 Blood Pressure 117/67 08/02/19 12:50 O2 Sat by Pulse Oximetry 60 L 08/02/19 12:50 Pain Scale Pain Intensity 0 - Physical Exam General Appearance: moderate distress, alert Eye Exam: PERRL/EOMI, eyes nml inspection Ears, Nose, Throat Exam: hearing grossly normal, normal pharynx Neck Exam: normal inspection, non-tender, supple, full range of motion Respiratory Exam: diminished breath sounds, accessory muscle use, wheezing, No chest tenderness Cardiovascular/Chest Exam: normal heart sounds, tachycardia Abdominal/Gastrointestinal Exam: soft, No tenderness Extremity Exam: non-tender, swelling Neurologic Exam: alert, oriented x 3, cooperative Skin Exam: normal color SpO2 Interpretation: hypoxic, O2 applied O2 Delivery: Non-rebreather - Course Nursing assessment & vital signs reviewed: Yes EKG Interpreted by Me: RATE ([id number]), Sinus Tach, NORMAL AXIS, NORMAL INTERVALS, Right Bundle Branch Block, Q-wave Ordered Tests: Active Orders 24 hr Category Date Time Status Promotion Officer STAT Care 08/02/19 12:59 Active EKG-ER Only STAT Care 08/02/19 12:58 Active IV Insertion STAT Care 08/02/19 12:58 Active NPO (ED) STAT Care 08/02/19 12:58 Active Pulse Oximetry (ED) STAT Care 08/02/19 12:58 Active CHEST 1 VIEW (PORTABLE) Stat Exams 08/02/19 12:59 Completed ARTERIAL BLOOD GASES Stat Lab 08/02/19 13:10 Completed BLOOD CULTURE Stat Lab 08/02/19 13:00 Received CBC W DIFF Stat Lab 08/02/19 13:00 Completed CMP Stat Lab 08/02/19 13:00 Completed Lactic Acid Stat Lab 08/02/19 13:10 Completed MAGNESIUM Stat Lab 08/02/19 13:00 Completed NT PRO BNP Stat Lab 08/02/19 13:00 Completed PROTIME WITH INR Stat Lab 08/02/19 13:00 Completed PTT Stat Lab 08/02/19 13:00 Completed TROPONIN Q3H Lab 08/02/19 13:00 Completed TROPONIN Q3H Lab 08/02/19 16:00 Ordered TROPONIN Q3H Lab 08/02/19 19:00 Ordered TROPONIN Q3H Lab 08/02/19 22:00 Ordered TROPONIN Q3H Lab 08/03/19 01:00 Ordered UA W/RFX UR CULTURE Stat Lab 08/02/19 12:58 Uncollected BiPap/CPAP STAT RT 08/02/19 12:58 Active Oxygen Nasal Cannula 4 lpm RT 08/02/19 13:27 Active Respiratory Therapy Assessment DAILY RT 08/02/19 13:29 Active Medication Summary Generic Name Dose Route Start Last Admin Trade Name Freq PRN Reason Stop Dose Admin Levofloxacin/Dextrose 750 mg in 150 mls @ 100 mls/hr 08/02/19 13:28 08/02/19 14:02 Levofloxacin 750mg/150ml D5w IV 08/02/19 14:57 100 ml/hr STAT STA 100 mls/hr Administration Sodium Chloride 1,000 mls @ 125 mls/hr 08/02/19 14:15 08/02/19 14:15 Sodium Chloride 0.9% 1000 Ml IV 09/01/19 14:14 125 mls/hr .Q8H NICK Administration Discontinued Medications Generic Name Dose Route Start Last Admin Trade Name Freq PRN Reason Stop Dose Admin Acetaminophen 1,000 mg 08/02/19 13:40 08/02/19 13:41 Tylenol Extra Strength 500 Mg PO 08/02/19 13:41 1,000 mg STAT ONE Administration Acetaminophen Confirm 08/02/19 13:40 Tylenol Extra Strength 500 Mg Administered 08/02/19 13:41 Dose 1,000 mg .ROUTE .STK-MED ONE Albuterol/Ipratropium Confirm 08/02/19 12:57 Duoneb 0.5-3 Mg/3 Ml Neb Administered 08/02/19 12:58 Dose 3 ml IH .STK-MED ONE Albuterol/Ipratropium 3 ml 08/02/19 12:58 08/02/19 13:26 Duoneb 0.5-3 Mg/3 Ml Neb IH 08/02/19 12:59 3 ml STAT ONE Administration Piperacillin Sod/Tazobactam 100 mls @ 200 mls/hr 08/02/19 13:28 08/02/19 14:06 Sod 3.375 gm/ Sodium Chloride IV 08/02/19 13:57 200 mls/hr STAT ONE Administration Sodium Chloride Confirm 08/02/19 13:54 Sodium Chloride 100ml Mini-Bag Plus Administered 08/02/19 13:55 Dose 100 mls @ ud IV .STK-MED ONE Levofloxacin/Dextrose Confirm 08/02/19 13:54 Levofloxacin 750mg/150ml D5w Administered 08/02/19 13:55 Dose 750 mg in 150 mls @ ud IV .STK-MED ONE Sodium Chloride Confirm 08/02/19 14:11 Sodium Chloride 0.9% 1000 Ml Administered 08/02/19 14:12 Dose 1,000 mls @ ud .ROUTE .STK-MED ONE Methylprednisolone Sodium Succinate Confirm 08/02/19 12:56 Solu-Medrol 125 Mg Administered 08/02/19 12:57 Dose 125 mg .ROUTE .STK-MED ONE Methylprednisolone Sodium Succinate 125 mg 08/02/19 12:58 08/02/19 13:01 Solu-Medrol 125 Mg IV 08/02/19 12:59 125 mg STAT ONE Administration Piperacillin Sod/Tazobactam Sod Confirm 08/02/19 13:53 Zosyn 3.375 Gm Vial Administered 08/02/19 13:54 Dose 3.375 gm IV .STK-MED ONE Lab/Rad Data: Laboratory Result Diagrams 08/02/19 13:00 08/02/19 13:00 Laboratory Results 08/02/19 08/02/19 08/02/19 Range/Units 13:10 13:00 13:00 WBC (4.0-10.5) K/mm3 RBC (4.1-5.6) M/mm3 Hgb (12.5-18.0) gm/dl Hct (42-50) % MCV (78-100) fl MCH (26-32) pg MCHC (32-36) g/dl RDW (11.5-14.0) % Plt Count (150-450) K/mm3 MPV (7.5-11.0) fl Gran % (36.0-66.0) % Eos # (Auto) (0-0.5) Absolute Lymphs (auto) (1.0-4.6) Absolute Monos (auto) (0.0-1.3) Lymphocytes % (24.0-44.0) % Monocytes % (0.0-12.0) % Eosinophils % (0.00-5.0) % Basophils % (0.0-0.4) % Absolute Granulocytes (1.4-6.9) Basophils # (0-0.4) PT 13.1 H (8.83-12.87) SECONDS INR 1.16 (0.8-3.0) APTT 33.9 (24.1-36.1) SECONDS Puncture Site LEFT RADIAL pCO2 63 H* (35-45) mmHg pO2 63 L (75-100) mmHg Base Excess 14.4 H (-2.0-2.0) O2 Saturation 90.4 L (94-100) g/dF ABG pH 7.43 (7.35-7.45) ABG HCO3 41.8 H* (22-28) ABG O2 Sat (Measured) 93.4 L (95-100) % Jordon Test YES A-a Gradient 571 a/A Ratio 0.10 Hemoglobin 9.0 Carboxyhemoglobin 2.1 (0.0-6.9) % THgb Methemoglobin 1.1 L (1.4-1.5) % Temperature 37.0 C POC O2 Flow Rate 100 % Sodium (137-145) mmol/L Potassium 4.5 (3.5-5.1) mmol/L Chloride (98-107) mmol/L Carbon Dioxide (22-30) mmol/L Anion Gap (5-15) MEQ/L BUN (9-20) mg/dL Creatinine (0.66-1.25) mg/dL Estimated GFR ML/MIN Glucose (74-106) mg/dL Lactic Acid 0.8 (0.4-2.0) Calcium (8.4-10.2) mg/dL Magnesium (1.6-2.3) mg/dL Total Bilirubin (0.2-1.3) mg/dL AST (17-59) U/L ALT (0-50) U/L Alkaline Phosphatase (38-126) U/L Troponin I 0.020 (0.000-0.034) ng/mL NT-Pro-B Natriuret Pep (0-900) pg/mL Serum Total Protein (6.3-8.2) g/dL Albumin (3.5-5.0) g/dL 08/02/19 08/02/19 Range/Units 13:00 13:00 WBC 1.8 L* (4.0-10.5) K/mm3 RBC 3.26 L (4.1-5.6) M/mm3 Hgb 9.0 L (12.5-18.0) gm/dl Hct 31.2 L (42-50) % MCV 95.7 (78-100) fl MCH 27.6 (26-32) pg MCHC 28.8 L (32-36) g/dl RDW 17.6 H (11.5-14.0) % Plt Count 195 (150-450) K/mm3 MPV 10.9 (7.5-11.0) fl Gran % 45.5 (36.0-66.0) % Eos # (Auto) 0.01 (0-0.5) Absolute Lymphs (auto) 0.78 L (1.0-4.6) Absolute Monos (auto) 0.20 (0.0-1.3) Lymphocytes % 42.6 (24.0-44.0) % Monocytes % 10.9 (0.0-12.0) % Eosinophils % 0.5 (0.00-5.0) % Basophils % 0.5 (0.0-0.4) % Absolute Granulocytes 0.83 L (1.4-6.9) Basophils # 0.01 (0-0.4) PT (8.83-12.87) SECONDS INR (0.8-3.0) APTT (24.1-36.1) SECONDS Puncture Site pCO2 (35-45) mmHg pO2 (75-100) mmHg Base Excess (-2.0-2.0) O2 Saturation (94-100) g/dF ABG pH (7.35-7.45) ABG HCO3 (22-28) ABG O2 Sat (Measured) (95-100) % Jordon Test A-a Gradient a/A Ratio Hemoglobin Carboxyhemoglobin (0.0-6.9) % THgb Methemoglobin (1.4-1.5) % Temperature C POC O2 Flow Rate % Sodium 138 (137-145) mmol/L Potassium 4.7 (3.5-5.1) mmol/L Chloride 96 L (98-107) mmol/L Carbon Dioxide 36 H (22-30) mmol/L Anion Gap 11.2 (5-15) MEQ/L BUN 28 H (9-20) mg/dL Creatinine 0.92 (0.66-1.25) mg/dL Estimated GFR > 60.0 ML/MIN Glucose 114 H (74-106) mg/dL Lactic Acid (0.4-2.0) Calcium 9.2 (8.4-10.2) mg/dL Magnesium 1.9 (1.6-2.3) mg/dL Total Bilirubin 0.80 (0.2-1.3) mg/dL AST 58 (17-59) U/L ALT 26 (0-50) U/L Alkaline Phosphatase 100 (38-126) U/L Troponin I (0.000-0.034) ng/mL NT-Pro-B Natriuret Pep 998 H (0-900) pg/mL Serum Total Protein 7.0 (6.3-8.2) g/dL Albumin 3.6 (3.5-5.0) g/dL - Progress Progress: improved, re-examined Air Movement: fair Progress Note: 08/02/19 14:29 64 years old is evaluated in the ER for respiratory distress. Patient was hypoxic with sats around 60% on room air on presentation. He is placed on nonrebreather initially followed by BiPAP quickly. Discussed with patient about possible impending intubation but patient refused and does not want to be intubated. He is also given a DuoNeb and Solu-Medrol on presentation. On reevaluation patient sats and work of breathing is much improved. He is feeling somewhat better. Work-up showed bilateral opacities with mets in the lungs. Has a white count of 1.8 which I believe is probably secondary to recent chemotherapy. Since patient is on chemotherapy had a fever I have started him on broad-spectrum antibiotics. Patient has been taking Lovenox shots regularly for his DVT right lower extremity and do not think we need to scan his chest. EKG showed sinus tach with no acute ST elevation and initial troponins are negative. Normal lactate. Discussed with Dr. Loaiza for admission who recommended transfer to facility with oncology services because of his leukopenia. Discussed with Dr. Grande at [facility] ER and patient is accepted for transfer. Plan discussed with patient and family who understand and agree with it. Blood Culture(s) Obtained: Yes Antibiotics given: Yes Discussed with Dr.: Jules, Other (Dr. Yoder) Counseled pt/family regarding: lab results, diagnosis, rad results - Departure Departure Disposition: Transfer Clinical Impression: Respiratory failure Qualifiers: Chronicity: acute on chronic Respiratory failure complication: hypoxia and hypercapnia Qualified Code(s): J96.21 - Acute and chronic respiratory failure with hypoxia; J96.22 - Acute and chronic respiratory failure with hypercapnia Bilateral pneumonia Qualifiers: Pneumonia type: due to unspecified organism Lung location: unspecified part of lung Qualified Code(s): J18.9 - Pneumonia, unspecified organism Neutropenia Qualifiers: Neutropenia type: secondary to cancer chemotherapy Qualified Code(s): D70.1 - Agranulocytosis secondary to cancer chemotherapy; T45.1X5A - Adverse effect of antineoplastic and immunosuppressive drugs, initial encounter Metastatic lung cancer (metastasis from lung to other site) Qualifiers: Laterality: unspecified laterality Qualified Code(s): C34.90 - Malignant neoplasm of unspecified part of unspecified bronchus or lung Condition: Serious Critical Care Time: Yes Critical Care Time(excluding separately billable procedures): Critical 30-74 mins Referrals: MOIZ PATEL [Primary Care Provider] -
[2019-08-02 13:15] LABS: A-aADO2 571; ABG POTASSIUM 4.5 (3.5-5.1); ARTERIAL BLD GAS O2 SATURATION 93.4 % (95-100); ARTERIAL BLOOD GAS BASE EXCESS 14.4 (-2.0-2.0); ARTERIAL BLOOD GAS FIO2 100 %; ARTERIAL BLOOD GAS PO2 63 mmHg (75-100); ARTERIAL BLOOD GAS pH 7.43 (7.35-7.45); CARBOXYHEMOGLOBIN 2.1 % THgb (0.0-6.9); HCO3- 41.8 (22-28); HGB O2 SAT 90.4 g/dF (94-100); Lactic Acid 0.8 (0.4-2.0); Methhemoglobin 1.1 % (1.4-1.5)
[2019-08-02 13:16] LABS: ABG SITE LEFT RADIAL; ALLEN TEST OK? YES; ARTERIAL BLOOD GAS PCO2 63 mmHg (35-45)
[2019-08-02 13:20] LABS: Absolute Neutrophil Ct (ANC) 0.83 (1.4-6.9); BASOPHIL % 0.5 % (0.0-0.4); Basophil (Absolute #) 0.01 (0-0.4); Eosinophil % 0.5 % (0.00-5.0); Eosinophil (Absolute #) 0.01 (0-0.5); Hematocrit 31.2 % (42-50); Lymphocyte (Absolute #) 0.78 (1.0-4.6); Lymphocytes % 42.6 % (24.0-44.0); Mean Cell Volume 95.7 fl (78-100); Mean Corpuscular Hemoglobin 27.6 pg (26-32); Mean Corpuscular Hgb Concent. 28.8 g/dl (32-36); Mean Platelet Volume 10.9 fl (7.5-11.0); Monocytes % 10.9 % (0.0-12.0); Neutrophil % 45.5 % (36.0-66.0); Platelet Count 195 K/mm3 (150-450); Red Blood Count 3.26 M/mm3 (4.1-5.6); Red Cell Distribution Width 17.6 % (11.5-14.0)
[2019-08-02 13:24] LABS: INR 1.16 (0.8-3.0); PROTIME 13.1 SECONDS (8.83-12.87)
[2019-08-02 13:27] LABS: PTT 33.9 SECONDS (24.1-36.1)
[2019-08-02] MEDS ORDERED: Zosyn 3.375 GM Vial 3.375 GM in Sodium Chloride 100ML MINI-BAG PLUS 100 ML IV ONE (13:28)
[2019-08-02] MEDS ORDERED: LEVOFLOXACIN 750MG/150ML D5W 750 MG/150 ML BAG IV STA (13:28)
--- NOTE | 2019-08-02 13:28 | XRAY ---
Indication: Pneumonia. History lung cancer. Comparison: November 26, 2018. Portable chest demonstrates new small bilateral nodularities worrisome for metastasis. Also worsening right base pleural effusion/thickening. Remaining chest unchanged again with right mid lung discoid atelectasis/scarring, cardiomegaly, and right hemidiaphragm elevation.
[2019-08-02 13:29] LABS: White Blood Count 1.8 K/mm3 (4.0-10.5)
[2019-08-02] MEDS ORDERED: TYLENOL EXTRA STRENGTH 500 MG PO ONE (13:40)
[2019-08-02] MEDS ORDERED: TYLENOL EXTRA STRENGTH 500 MG ONE (13:40)
[2019-08-02 13:41] LABS: ALBUMIN 3.6 g/dL (3.5-5.0); ALKALINE PHOSPHATASE 100 U/L (38-126); ANION GAP 11.2 MEQ/L (5-15); BLOOD UREA NITROGEN 28 mg/dL (9-20); CHLORIDE 96 mmol/L (98-107); Calcium 9.2 mg/dL (8.4-10.2); Carbon Dioxide 36 mmol/L (22-30); Creatinine 1 0.92 mg/dL (0.66-1.25); Glucose 114 mg/dL (74-106); MAGNESIUM 1.9 mg/dL (1.6-2.3); NT PRO BNP 998 pg/mL (0-900); Potassium 4.7 mmol/L (3.5-5.1); SGOT/AST 58 U/L (17-59); SGPT/ALT 26 U/L (0-50); SODIUM 138 mmol/L (137-145)
[2019-08-02] MEDS ORDERED: Zosyn 3.375 GM Vial IV ONE (13:53)
[2019-08-02] MEDS ORDERED: LEVOFLOXACIN 750MG/150ML D5W 750 MG/150 ML BAG IV ONE (13:54)
[2019-08-02] MEDS ORDERED: Sodium Chloride 100ML MINI-BAG PLUS 100 ML IV ONE (13:54)
[2019-08-02] MEDS ORDERED: Sodium Chloride 0.9% 1000 ML 1,000 ML ONE (14:11)
[2019-08-02 14:13] LABS: INFLUENZA A NEGATIVE (NEGATIVE); INFLUENZA B NEGATIVE (NEGATIVE); RESPIRATORY SYNCTIAL VIRUS NEGATIVE (Negative)
[2019-08-02] MEDS ORDERED: Sodium Chloride 0.9% 1000 ML 1,000 ML IV SCH (14:15)
[2019-08-02 14:46] LABS: Slide Review 1 YES
[2019-08-02 15:28] VITALS: BP 85/58; PULSE 104; O2SAT 95
== END 2019-08-02 16:12 | disposition short-term general hospital (02) ==
LOC: ED 12:49
DX: J96.21 Acute and chronic respiratory failure with hypoxia (principal); J18.9 Pneumonia, unspecified organism; T45.1X5A Adverse effect of antineoplastic and immunosuppressive drugs, initial encounter; C34.90 Malignant neoplasm of unspecified part of unspecified bronchus or lung; Z79.899 Other long term (current) drug therapy; M79.18 Myalgia, other site; I10 Essential (primary) hypertension; E11.9 Type 2 diabetes mellitus without complications
CPT/HCPCS: 36000; 36415; 36600; 71045; 80053; 82375; 82803; 83605; 83735; 83880; 84484; 85025; 85610; 85730; 87040; 87631; 93005; 93041; 94002; 94640; 94760; 96360; 96365; 96368; 96374; 99285; 99291; J1956; J2930; A9270-GY

== ENCOUNTER 2021-04-02 09:41 | Day surgery (SDC) | payer MEDICARE ==
[2021-04-02] MEDS ORDERED: Depo-Medrol 40 MG/ML IM ONE (09:42)
[2021-04-02] MEDS ORDERED: BUPIVACAINE 0.5% VIAL IJ ONE (09:42)
[2021-04-02] MEDS ORDERED: Lactated Ringers 1,000 ML IV ONE (11:10)
[2021-04-02] MEDS ORDERED: DIPRIVAN 200 MG/20 ML IV ONE (11:37)
--- NOTE | 2021-04-02 13:07 | XRAY ---
Indication: Bilateral SI joint injection. Intraoperative fluoroscopy provided for 16 seconds. 4 digital spot images submitted for interpretation demonstrate posterior needle tip projecting over the inferior left and right SI joint. Correlate with intraoperative findings/report. Incidental incompletely visualized lumbosacral junction spinal fusion hardware.
--- NOTE | 2021-04-02 13:20 | XRAY ---
16 seconds of fluoroscopy was used in surgery for a bilateral sacroiliac joint injection.
== END 2021-04-02 12:00 | disposition home or self-care (01) ==
LOC: SDC-PAIN 09:41
PROVIDERS: ATTEND Psychiatry & Neurology Pain Medicine
DX: M46.1 Sacroiliitis, not elsewhere classified (principal); E11.9 Type 2 diabetes mellitus without complications; Z79.899 Other long term (current) drug therapy
CPT/HCPCS: 27096; 72202; 77002; 82947; G0260; J1030; J2704

== ENCOUNTER 2021-05-14 07:47 | Day surgery (SDC) | payer MEDICARE ==
[2021-05-14] MEDS ORDERED: Lactated Ringers 1,000 ML IV ONE (09:24)
[2021-05-14] MEDS ORDERED: DIPRIVAN 200 MG/20 ML IV ONE (09:25)
--- NOTE | 2021-05-14 10:14 | XRAY ---
Indication: Right SI joint injection. Intraoperative fluoroscopy provided for 9 seconds. 2 digital spot images submitted for interpretation demonstrates posterior needle tip projecting over the inferior right SI joint. Correlate with intraoperative findings/report.
--- NOTE | 2021-05-14 10:39 | XRAY ---
9 seconds fluoroscopy time in surgery for injection of the right SI joint.
== END 2021-05-14 09:50 | disposition home or self-care (01) ==
LOC: SDC-PAIN 07:47
PROVIDERS: ATTEND Psychiatry & Neurology Pain Medicine
DX: M46.1 Sacroiliitis, not elsewhere classified (principal); E11.9 Type 2 diabetes mellitus without complications; Z79.899 Other long term (current) drug therapy
CPT/HCPCS: 72020; 77002; 82947; J2704

== ENCOUNTER 2021-06-11 08:47 | Day surgery (SDC) | payer MEDICARE ==
[2021-06-11] MEDS ORDERED: Depo-Medrol 40 MG/ML IM ONE (08:48)
[2021-06-11] MEDS ORDERED: LIDOCAINE HCL 2% 100 MG/5 ML IJ ONE (08:48)
[2021-06-11] MEDS ORDERED: Reglan 10 MG/2 ML ONE (09:34)
[2021-06-11] MEDS ORDERED: Pepcid 20 MG VIAL IV ONE (09:34)
[2021-06-11] MEDS ORDERED: DIPRIVAN 200 MG/20 ML IV ONE (10:50)
[2021-06-11] MEDS ORDERED: Lactated Ringers 1,000 ML IV ONE (10:54)
--- NOTE | 2021-06-11 12:44 | XRAY ---
Indication: Right L4-S1 MBB. Intraoperative fluoroscopy provided for 36 seconds. Single digital spot image submitted for interpretation demonstrates posterior needle tips projecting over the expected right L4-S1 nerve roots. Correlate with intraoperative findings/report. Incidental incompletely visualized bilateral L4-S1 fusion hardware.
--- NOTE | 2021-06-11 12:48 | XRAY ---
36 seconds fluoroscopy time in surgery for right LL
== END 2021-06-11 11:19 | disposition home or self-care (01) ==
LOC: SDC-PAIN 08:47
PROVIDERS: ATTEND Psychiatry & Neurology Pain Medicine
DX: M47.816 Spondylosis without myelopathy or radiculopathy, lumbar region (principal); E11.9 Type 2 diabetes mellitus without complications; Z79.899 Other long term (current) drug therapy
CPT/HCPCS: 64493; 64494; 72020; 77002; 82947; J1030; J2704

== ENCOUNTER 2021-07-06 10:42 | Emergency (ER) | payer MEDICARE ==
--- NOTE | 2021-07-06 11:03 | ERPHSYRPT ---
- History of Present Illness Time Seen by Provider: 07/06/21 10:58 Source: patient, family Exam Limitations: no limitations Physician History: pt noted right upper abscess and also in right groin behind scrotum last day or so. Hx bilateral DVT and on lovenox, now with increased swelling. No change on erythema. discussed CT to rule out pelvic collection/tracking and pt agrees. Diabetic NIDDM. abd nontender without mass or peritoneal signs. No CP or SOBreath. Will check US to rule out further DVTs with increased leg swelling. Method of Injury: other (no known injury.) Occurred: days ago Quality: aching Severity of Pain-Max: moderate Severity of Pain-Current: moderate Lower Extremities Pain: thigh: right Modifying Factors: Improves With: immobilization, movement Allergies/Adverse Reactions: No Known Drug Allergies Allergy (Verified 07/06/21 11:01) Home Medications: Allopurinol 300 mg [Zyloprim 300 mg] 300 mg PO DAILY 11/01/18 [History] Cholecalciferol (Vitamin D3) [Vitamin D3] 1,000 unit PO DAILY 11/01/18 [History] Metformin HCl 500 mg PO DAILY 11/01/18 [History] Omeprazole 20 mg PO DAILY 11/01/18 [History] Tamsulosin HCl 0.4 mg [Flomax 0.4 MG] 0.4 mg PO DAILY 11/01/18 [History] Enoxaparin Sodium 0.8 ml SQ Q12H 08/02/19 [History] Folic Acid 1 mg PO DAILY 08/02/19 [History] Magnesium Oxide [Magnesium] 400 mg PO DAILY 08/02/19 [History] Furosemide 20 mg [Lasix 20 mg] 40 mg PO DAILY 07/06/21 [History] Spironolactone 25 mg [Aldactone 25 MG] 25 mg PO BID 07/06/21 [History] Hx Tetanus, Diphtheria Vaccination/Date Given: Yes Hx Influenza Vaccination/Date Given: Yes Hx Pneumococcal Vaccination/Date Given: No - Review of Systems Constitutional: No Fever, No Chills Eyes: No Symptoms Ears, Nose, & Throat: No Symptoms Respiratory: No Cough, No Dyspnea Cardiac: No Chest Pain, No Edema, No Syncope Abdominal/Gastrointestinal: No Abdominal Pain, No Nausea, No Vomiting, No Diarrhea Genitourinary Symptoms: No Dysuria Musculoskeletal: No Back Pain, No Neck Pain Skin: No Rash Neurological: No Dizziness, No Focal Weakness, No Sensory Changes Psychological: No Symptoms Endocrine: No Symptoms Hematologic/Lymphatic: No Symptoms Immunological/Allergic: No Symptoms All Other Systems: Reviewed and Negative - Past Medical History Pertinent Past Medical History: Yes Cardiac History: Hypertension Respiratory History: COPD Endocrine Medical History: Diabetes Type II Musculoskeletal History: Other, Degenerative Disk Disease History: Other Male Reproductive Disorders: Prostate Problems Other Medical History: polycythemiavera, too much protein in urine - Past Surgical History Past Surgical History: Yes Cardiac: Cardiac Catheterization Musculoskeletal: Orthopedic Surgery, Joint Replacement Other Surgical History: knees, shoulders - Social History Smoking Status: Current every day smoker How long have you smoked: 57 years Exposure to second hand smoke: Yes Drug Use: none Patient Lives Alone: No - Nursing Vital Signs Nursing Vital Signs: Initial Vital Signs Temperature 97.6 F 07/06/21 10:48 Pulse Rate 105 H 07/06/21 10:48 Blood Pressure 116/86 07/06/21 10:48 O2 Sat by Pulse Oximetry 93 L 07/06/21 10:48 Pain Scale Pain Intensity 4 - Physical Exam General Appearance: no apparent distress, alert Eyes, Ears, Nose, Throat Exam: moist mucous membranes Neck Exam: non-tender, supple Cardiovascular/Respiratory Exam: chest non-tender, normal breath sounds, regular rate/rhythm, no respiratory distress Gastrointestinal/Abdominal Exam: non-tender, guarding Back Exam: normal inspection, No vertebral tenderness Hips Exam: bilateral: non-tender, normal inspection, normal range of motion, no evidence of injury Legs Exam: bilateral leg: non-tender, normal inspection, normal range of motion, no evidence of injury, swelling Knees Exam: bilateral knee: non-tender, normal inspection, normal range of motion, no evidence of injury Ankle Exam: bilateral ankle: non-tender, normal inspection, normal range of motion, no evidence of injury Foot Exam: bilateral foot: non-tender, normal inspection, normal range of motion, no evidence of injury DTR - Lower Extremities Exam: knee (R): 2+, knee (L): 2+, ankle (R): 2+, ankle (L): 2+ Neuro/Tendon Exam: normal sensation, normal motor functions Mental Status Exam: alert, oriented x 3, cooperative Skin Exam: normal color, warm, dry, other (abcess right thigh) Procedures - Incision and Drainage Time of Procedure: 17:12 Anesthesia: 1% Lidocaine cc's of anesthesia: 4 Blade Size: 11 I & D Procedure: betadine prep, sterile drapes applied, sterile dressing applied, irrigated with normal saline, gauze wick placed Results: moderate amount pus - Course Nursing assessment & vital signs reviewed: Yes EKG Interpreted by Me: Sinus Tach, Right Bundle Branch Block, Non-specific ST Changes - CT Exams Right Pelvis CT Interpretation: Tele-radiologist Report, Other (abscess right thigh no pelvic abscess) Ordered Tests: Active Orders 24 hr Category Date Time Status EKG-ER Only STAT Care 07/06/21 11:08 Active IV Insertion STAT Care 07/06/21 11:08 Active PELVIS WITHOUT CONTRAST [CT] Stat Exams 07/06/21 11:58 Taken VENOUS BILATERAL EXTREMITY [US] Stat Exams 07/06/21 11:44 Taken CBC W DIFF Stat Lab 07/06/21 11:28 Completed CMP Stat Lab 07/06/21 11:28 Completed Lactic Acid Stat Lab 07/06/21 11:28 Completed NT PRO BNP Stat Lab 07/06/21 11:28 Completed TROPONIN Q3H Lab 07/06/21 11:28 Completed TROPONIN Q3H Lab 07/06/21 14:04 Completed TROPONIN Q3H Lab 07/06/21 17:15 Ordered TROPONIN Q3H Lab 07/06/21 20:15 Ordered TROPONIN Q3H Lab 07/06/21 23:15 Ordered Medication Summary Discontinued Medications Generic Name Dose Route Start Last Admin Trade Name Freq PRN Reason Stop Dose Admin Diphtheria/Tetanus/Acell Pertussis 0.5 ml 07/06/21 11:08 07/06/21 11:19 Tdap --Diph,Pertuss(Acell),Tet Vac/Pf 0.5 Ml Vial IM 07/06/21 11:09 0.5 ml .ONCE ONE Administration Diphtheria/Tetanus/Acell Pertussis Confirm 07/06/21 11:18 Tdap --Diph,Pertuss(Acell),Tet Vac/Pf 0.5 Ml Vial Administered 07/06/21 11:19 Dose 0.5 ml IM .STK-MED ONE Ceftriaxone Sodium/Dextrose 1 g in 50 mls @ 100 mls/hr 07/06/21 11:09 07/06/21 11:54 Rocephin 1 Gm-D5w 50 Ml Bag IV 07/06/21 11:38 Infused STAT STA Infusion Ceftriaxone Sodium/Dextrose Confirm 07/06/21 11:18 Rocephin 1 Gm-D5w 50 Ml Bag Administered 07/06/21 11:19 Dose 1 g in 50 mls @ ud IV .STK-MED ONE Lidocaine HCl 5 ml 07/06/21 11:08 07/06/21 11:21 Lidocaine Hcl 1% 20 Ml Mdv 20 Ml Ml IJ 07/06/21 11:09 5 ml STAT ONE Administration Lidocaine HCl Confirm 07/06/21 11:18 Lidocaine Hcl 1% 20 Ml Mdv 20 Ml Ml Administered 07/06/21 11:19 Dose 5 ml .ROUTE .STK-MED ONE Lidocaine HCl Confirm 07/06/21 16:27 Lidocaine Hcl 1% 20 Ml Mdv 20 Ml Ml Administered 07/06/21 16:28 Dose 10 ml .ROUTE .[facility] ONE Lab/Rad Data: Laboratory Result Diagrams 07/06/21 11:28 07/06/21 11:28 Laboratory Results 07/06/21 07/06/21 07/06/21 Range/Units 14:04 11:28 11:28 WBC (4.0-10.5) x10^3/uL RBC (4.1-5.6) x10^6/uL Hgb (12.5-18.0) g/dL Hct (42-50) % MCV (78-100) fL MCH (26-32) pg MCHC (32-36) g/dL RDW (11.5-14.0) % Plt Count (150-450) x10^3/uL MPV (7.5-11.0) fL Gran % (36.0-66.0) % Immature Gran % (Auto) (0.00-0.4) % Nucleat RBC Rel Count (0.00-0.1) % Eos # (Auto) (0-0.5) x10^3/uL Immature Gran # (Auto) (0.00-0.03) x10^3u/L Absolute Lymphs (auto) (1.0-4.6) x10^3/uL Absolute Monos (auto) (0.0-1.3) x10^3/uL Absolute Nucleated RBC (0.00-0.01) x10^3u/L Lymphocytes % (24.0-44.0) % Monocytes % (0.0-12.0) % Eosinophils % (0.00-5.0) % Basophils % (0.0-0.4) % Absolute Granulocytes (1.4-6.9) x10^3/uL Basophils # (0-0.4) x10^3/uL Sodium (137-145) mmol/L Potassium (3.5-5.1) mmol/L Chloride (98-107) mmol/L Carbon Dioxide (22-30) mmol/L Anion Gap (5-15) MEQ/L BUN (9-20) mg/dL Creatinine (0.66-1.25) mg/dL Estimated GFR ML/MIN Glucose (74-106) mg/dL Lactic Acid (0.4-2.0) Calcium (8.4-10.2) mg/dL Total Bilirubin (0.2-1.3) mg/dL AST (17-59) U/L ALT (0-50) U/L Alkaline Phosphatase (38-126) U/L Troponin I < 0.012 < 0.012 (0.000-0.034) ng/mL NT-Pro-B Natriuret Pep 147 (0-900) pg/mL Serum Total Protein (6.3-8.2) g/dL Albumin (3.5-5.0) g/dL 07/06/21 07/06/21 07/06/21 Range/Units 11:28 11:28 11:28 WBC 6.3 (4.0-10.5) x10^3/uL RBC 4.03 L (4.1-5.6) x10^6/uL Hgb 13.0 (12.5-18.0) g/dL Hct 41.6 L (42-50) % MCV 103.2 H (78-100) fL MCH 32.3 H (26-32) pg MCHC 31.3 L (32-36) g/dL RDW 14.5 H (11.5-14.0) % Plt Count 189 (150-450) x10^3/uL MPV 11.0 (7.5-11.0) fL Gran % 71.6 H (36.0-66.0) % Immature Gran % (Auto) 1.0 H (0.00-0.4) % Nucleat RBC Rel Count 0.0 (0.00-0.1) % Eos # (Auto) 0.02 (0-0.5) x10^3/uL Immature Gran # (Auto) 0.06 H (0.00-0.03) x10^3u/L Absolute Lymphs (auto) 0.91 L (1.0-4.6) x10^3/uL Absolute Monos (auto) 0.78 (0.0-1.3) x10^3/uL Absolute Nucleated RBC 0.00 (0.00-0.01) x10^3u/L Lymphocytes % 14.5 L (24.0-44.0) % Monocytes % 12.4 H (0.0-12.0) % Eosinophils % 0.3 (0.00-5.0) % Basophils % 0.2 (0.0-0.4) % Absolute Granulocytes 4.49 (1.4-6.9) x10^3/uL Basophils # 0.01 (0-0.4) x10^3/uL Sodium 139 (137-145) mmol/L Potassium 4.5 (3.5-5.1) mmol/L Chloride 101 (98-107) mmol/L Carbon Dioxide 27 (22-30) mmol/L Anion Gap 14.5 (5-15) MEQ/L BUN 23 H (9-20) mg/dL Creatinine 1.13 (0.66-1.25) mg/dL Estimated GFR > 60.0 ML/MIN Glucose 104 (74-106) mg/dL Lactic Acid 1.2 (0.4-2.0) Calcium 9.4 (8.4-10.2) mg/dL Total Bilirubin 0.50 (0.2-1.3) mg/dL AST 35 (17-59) U/L ALT 17 (0-50) U/L Alkaline Phosphatase 119 (38-126) U/L Troponin I (0.000-0.034) ng/mL NT-Pro-B Natriuret Pep (0-900) pg/mL Serum Total Protein 6.7 (6.3-8.2) g/dL Albumin 3.6 (3.5-5.0) g/dL - Progress Progress: improved, re-examined Progress Note: 07/06/21 17:12 several delays from additional patients, then pt needed to eat due to his diabetes. . 07/06/21 17:14 bilateral LE venous US negative for DVT. 07/06/21 17:25 pt advised cannot use septra to cover MSRA due to his other med interactions. Counseled pt/family regarding: lab results, diagnosis, need for follow-up, rad results - Departure Departure Disposition: Home Clinical Impression: Abscess of right thigh, Elevated BUN Condition: Good Critical Care Time: No Referrals: MOIZ PATEL [Primary Care Provider] - Follow up/PCP as directed Instructions: Wound Infection, Abscess Incision and Drainage, Skin Abscess Additional Instructions: use warm sitz bath for groin with epsom salts and apply antibiotic ointment. change penny if wet on main wound. see to change wick early this week. return meantime if not improving or symptoms of concern. recheck kidney functions with your Dr. they are slightly elevataed. Prescriptions: Mupirocin [Bactroban OINTMENT] 22 gm TP BID #1 Cephalexin Mh 500 mg [Keflex 500 mg] 500 mg PO TID 7 Days #30 cap
[2021-07-06] MEDS ORDERED: XYLOCAINE 1% HCL 20 ML MDV IJ ONE (11:08)
[2021-07-06] MEDS ORDERED: Adacel Vial IM ONE ×2 (11:08→11:18)
[2021-07-06] MEDS ORDERED: ROCEPHIN 1 Gm-D5w 50 ml Bag** 1 G/50 ML IVPB IV STA (11:09)
[2021-07-06] MEDS ORDERED: XYLOCAINE 1% HCL 20 ML MDV ONE ×2 (11:18→16:27)
[2021-07-06] MEDS ORDERED: ROCEPHIN 1 Gm-D5w 50 ml Bag** 1 G/50 ML IVPB IV ONE (11:18)
[2021-07-06 11:36] LABS: Absolute Neutrophil Ct (ANC) 4.49 x10^3/uL (1.4-6.9); Basophil (Absolute #) 0.01 x10^3/uL (0-0.4); Eosinophil % 0.3 % (0.00-5.0); Eosinophil (Absolute #) 0.02 x10^3/uL (0-0.5); Hematocrit 41.6 % (42-50); Lymphocyte (Absolute #) 0.91 x10^3/uL (1.0-4.6); Lymphocytes % 14.5 % (24.0-44.0); Mean Cell Volume 103.2 fL (78-100); Mean Corpuscular Hemoglobin 32.3 pg (26-32); Mean Corpuscular Hgb Concent. 31.3 g/dL (32-36); Monocyte (Absolute #) 0.78 x10^3/uL (0.0-1.3); Monocytes % 12.4 % (0.0-12.0); Neutrophil % 71.6 % (36.0-66.0); Platelet Count 189 x10^3/uL (150-450); Red Blood Count 4.03 x10^6/uL (4.1-5.6); Red Cell Distribution Width 14.5 % (11.5-14.0); White Blood Count 6.3 x10^3/uL (4.0-10.5)
[2021-07-06 12:00] LABS: ALBUMIN 3.6 g/dL (3.5-5.0); ALKALINE PHOSPHATASE 119 U/L (38-126); ANION GAP 14.5 MEQ/L (5-15); BLOOD UREA NITROGEN 23 mg/dL (9-20); CHLORIDE 101 mmol/L (98-107); Calcium 9.4 mg/dL (8.4-10.2); Carbon Dioxide 27 mmol/L (22-30); Creatinine 1 1.13 mg/dL (0.66-1.25); EST GLOMERULAR FILTRATION RATE > 60.0 ML/MIN; Glucose 104 mg/dL (74-106); Potassium 4.5 mmol/L (3.5-5.1); SGOT/AST 35 U/L (17-59); SGPT/ALT 17 U/L (0-50); SODIUM 139 mmol/L (137-145); Total Protein 6.7 g/dL (6.3-8.2)
[2021-07-06 15:16] VITALS: BP 112/73; PULSE 94; O2SAT 95
--- NOTE | 2021-07-06 21:05 | XRAY ---
Indication: Bilateral leg swelling. History DVT. Two-dimensional sonogram and color Doppler imaging of the major venous vessels of the left and right leg performed. Comparison: None No thrombus seen in the examined deep venous vessels of the left and right leg including greater saphenous vein. Veins demonstrate normal compressibility. Venous waveforms are normal with and without augmentation. Impression: Left and right legs negative for DVT. Comment: Preliminary report was given.
--- NOTE | 2021-07-06 21:09 | XRAY ---
Indication: Right groin/inner thigh abscess. Pain. Multiple contiguous axial images obtained through the pelvis without contrast. Comparison: None Medial right proximal thigh demonstrates mild cutaneous/subcutaneous induration without focal walled off fluid collection or subcutaneous emphysema. Finding presumed inflammatory/infectious. Visualized pelvic contents demonstrates sigmoid diverticulosis. Urinary bladder normally distended and unremarkable. No intrapelvic free fluid/air. Mild aortoiliac calcifications without aneurysm. Osseous structures demonstrates mild osteopenia, partially visualized bilateral lumbosacral fusion hardware and moderate degenerative changes both hips. Impression: 1. Mild cutaneous/subcutaneous induration medial proximal right thigh presumed inflammatory/infectious. No walled off fluid collection or subcutis emphysema. 2. Incidental sigmoid diverticulosis, arteriosclerotic disease, and chronic bony findings. Comment: Preliminary interpretation made by [facility]. No critical discrepancy.
== END 2021-07-06 17:42 | disposition home or self-care (01) ==
LOC: ED 10:42
DX: L02.415 Cutaneous abscess of right lower limb (principal); R94.4 Abnormal results of kidney function studies; I10 Essential (primary) hypertension; E11.9 Type 2 diabetes mellitus without complications; J44.9 Chronic obstructive pulmonary disease, unspecified; Z72.0 Tobacco use; Z79.84 Long term (current) use of oral hypoglycemic drugs; Z79.899 Other long term (current) drug therapy; Z86.718 Personal history of other venous thrombosis and embolism
CPT/HCPCS: 10060; 36000; 36415; 72192; 80053; 83605; 83880; 84484; 85025; 90471; 90715; 93005; 93970; 96365; 96372; 99285; J0696

== ENCOUNTER 2021-07-14 16:17 | Emergency (ER) | payer MEDICARE ==
--- NOTE | 2021-07-14 16:21 | ERPHSYRPT ---
- History of Present Illness Time Seen by Provider: 07/14/21 16:21 Source: patient, family Physician History: This is a 66-year-old obese white male who is diabetic and has a history of gout and gastroesophageal reflux disease. He is a patient of Dr. Rodriguez. He was recently seen in the emergency department where he underwent an incision and drainage of a groin abscess and was placed on Keflex. The abscess drainage site is improving. However in the last few days he has noticed increasing swelling and redness in his bilateral lower extremities. Patient also has tenderness when he ambulates now. He did not have these symptoms 6 days ago. Patient denies chest pain. He denies shortness of breath Timing/Duration: day(s) (3) Severity: mild Modifying Factors: Improves With: movement (To moderate) Associated Symptoms: other (Redness swelling and warmth bilateral lower extremities.) Allergies/Adverse Reactions: No Known Drug Allergies Allergy (Verified 07/14/21 17:10) Home Medications: Allopurinol 300 mg [Zyloprim 300 mg] 300 mg PO DAILY 11/01/18 [History] Cholecalciferol (Vitamin D3) [Vitamin D3] 1,000 unit PO DAILY 11/01/18 [History] Metformin HCl 500 mg PO DAILY 11/01/18 [History] Omeprazole 20 mg PO DAILY 11/01/18 [History] Tamsulosin HCl 0.4 mg [Flomax 0.4 MG] 0.4 mg PO DAILY 11/01/18 [History] Enoxaparin Sodium 0.8 ml SQ Q12H 08/02/19 [History] Folic Acid 1 mg PO DAILY 08/02/19 [History] Magnesium Oxide [Magnesium] 400 mg PO DAILY 08/02/19 [History] Furosemide 20 mg [Lasix 20 mg] 40 mg PO DAILY 07/06/21 [History] Spironolactone 25 mg [Aldactone 25 MG] 25 mg PO BID 07/06/21 [History] Hx Tetanus, Diphtheria Vaccination/Date Given: Yes Hx Influenza Vaccination/Date Given: Yes Hx Pneumococcal Vaccination/Date Given: No Travel Risk - International Travel Have you traveled outside of the country in past 3 weeks: No - Coronavirus Screening Are you exhibiting any of the following symptoms?: No Close contact with a COVID-19 positive Pt in past 14-21 Days: No - Vaccine Status Have you recieved a Covid-19 vaccination: Yes [employer]: Pfizer - Vaccination Dates Date of 2cond Vaccination (if applicable): 08/2020 - Review of Systems Constitutional: No Symptoms Eyes: No Symptoms Ears, Nose, & Throat: No Symptoms Respiratory: No Symptoms Cardiac: No Symptoms Abdominal/Gastrointestinal: No Symptoms Genitourinary Symptoms: No Symptoms Musculoskeletal: No Symptoms Skin: Cellulitis (Bilateral lower extremities) Neurological: No Symptoms Psychological: No Symptoms Endocrine: No Symptoms Hematologic/Lymphatic: No Symptoms Immunological/Allergic: No Symptoms All Other Systems: Reviewed and Negative - Past Medical History Pertinent Past Medical History: Yes Cardiac History: Hypertension Respiratory History: COPD Endocrine Medical History: Diabetes Type II Musculoskeletal History: Other, Degenerative Disk Disease History: Other Male Reproductive Disorders: Prostate Problems Other Medical History: polycythemiavera, too much protein in urine - Past Surgical History Past Surgical History: Yes Cardiac: Cardiac Catheterization Musculoskeletal: Orthopedic Surgery, Joint Replacement Other Surgical History: knees, shoulders - Social History Smoking Status: Current every day smoker How long have you smoked: 57 years Exposure to second hand smoke: Yes Drug Use: none Patient Lives Alone: No - Nursing Vital Signs Nursing Vital Signs: Initial Vital Signs Temperature 97.8 F 07/14/21 16:59 Pulse Rate 117 H 07/14/21 16:59 Respiratory Rate 24 07/14/21 16:59 Blood Pressure 110/80 07/14/21 16:59 O2 Sat by Pulse Oximetry 92 L 07/14/21 16:59 Pain Scale Pain Intensity 0 - Physical Exam General Appearance: no apparent distress, alert, anxiety Eye Exam: PERRL/EOMI, eyes nml inspection Ears, Nose, Throat Exam: normal ENT inspection, moist mucous membranes Neck Exam: normal inspection, non-tender, supple, full range of motion Respiratory Exam: normal breath sounds, lungs clear, airway intact, No chest tenderness, No respiratory distress Cardiovascular Exam: tachycardia Gastrointestinal/Abdomen Exam: soft, normal bowel sounds, No tenderness Rectal Exam: not done Back Exam: normal inspection, normal range of motion, No CVA tenderness, No vertebral tenderness Extremity Exam: normal range of motion, pelvis stable, inflammation (Cellulitis bilateral lower extremities with redness and warmth present.) Neurologic Exam: alert, oriented x 3, cooperative, coach driver II-XII nml as tested, normal mood/affect, nml cerebellar function, nml station & gait, sensation nml Skin Exam: other Lymphatic Exam: No adenopathy (Cellulitis bilateral lower extremities) SpO2 Interpretation: normal O2 Delivery: Room Air - Course Nursing assessment & vital signs reviewed: Yes EKG Interpreted by Me: RATE ([id number]), Sinus Tach, Right Bundle Branch Block, NORMAL ST-T, Other (No acute ischemic changes. There is also a left posterior fascicular block present. No change from EKG dated 07/06/2021.) Ordered Tests: Active Orders 24 hr Category Date Time Status Email Engineer STAT Care 07/14/21 17:18 Active EKG-ER Only STAT Care 07/14/21 17:17 Active IV Insertion STAT Care 07/14/21 17:17 Active Pulse Oximetry (ED) STAT Care 07/14/21 17:17 Active BLOOD CULTURE Stat Lab 07/14/21 18:20 Received CBC W DIFF Stat Lab 07/14/21 18:19 Completed CMP Stat Lab 07/14/21 18:19 Completed NT PRO BNP Stat Lab 07/14/21 18:19 Completed Medication Summary Discontinued Medications Generic Name Dose Route Start Last Admin Trade Name Freq PRN Reason Stop Dose Admin Furosemide 40 mg 07/14/21 17:46 07/14/21 18:23 Furosemide 40 Mg/4 Ml Vial IV 07/14/21 17:47 40 mg STAT ONE Administration Furosemide Confirm 07/14/21 18:22 Furosemide 40 Mg/4 Ml Vial Administered 07/14/21 18:23 Dose 40 mg .ROUTE .STK-MED ONE Levofloxacin/Dextrose 500 mg in 100 mls @ 100 mls/hr 07/14/21 17:45 07/14/21 19:23 Levofloxacin 500mg/100ml D5w IV 07/14/21 18:44 Infused STAT STA Infusion Levofloxacin/Dextrose Confirm 07/14/21 18:23 Levofloxacin 500mg/100ml D5w Administered 07/14/21 18:24 Dose 500 mg in 100 mls @ ud IV .STK-MED ONE Lab/Rad Data: Laboratory Result Diagrams 07/14/21 18:19 07/14/21 18:19 Laboratory Results 07/14/21 07/14/21 Range/Units 18:19 18:19 WBC 3.9 L (4.0-10.5) x10^3/uL RBC 3.89 L (4.1-5.6) x10^6/uL Hgb 12.5 (12.5-18.0) g/dL Hct 39.7 L (42-50) % MCV 102.1 H (78-100) fL MCH 32.1 H (26-32) pg MCHC 31.5 L (32-36) g/dL RDW 14.0 (11.5-14.0) % Plt Count 241 (150-450) x10^3/uL MPV 11.5 H (7.5-11.0) fL Gran % 77.9 H (36.0-66.0) % Immature Gran % (Auto) 0.3 (0.00-0.4) % Nucleat RBC Rel Count 0.0 (0.00-0.1) % Eos # (Auto) 0.02 (0-0.5) x10^3/uL Immature Gran # (Auto) 0.01 (0.00-0.03) x10^3u/L Absolute Lymphs (auto) 0.62 L (1.0-4.6) x10^3/uL Absolute Monos (auto) 0.19 (0.0-1.3) x10^3/uL Absolute Nucleated RBC 0.00 (0.00-0.01) x10^3u/L Lymphocytes % 15.9 L (24.0-44.0) % Monocytes % 4.9 (0.0-12.0) % Eosinophils % 0.5 (0.00-5.0) % Basophils % 0.5 (0.0-0.4) % Absolute Granulocytes 3.04 (1.4-6.9) x10^3/uL Basophils # 0.02 (0-0.4) x10^3/uL Sodium 134 L (137-145) mmol/L Potassium 4.8 (3.5-5.1) mmol/L Chloride 94 L (98-107) mmol/L Carbon Dioxide 32 H (22-30) mmol/L Anion Gap 13.1 (5-15) MEQ/L BUN 33 H (9-20) mg/dL Creatinine 1.33 H (0.66-1.25) mg/dL Estimated GFR 56.8 ML/MIN Glucose 109 H (74-106) mg/dL Calcium 9.0 (8.4-10.2) mg/dL Total Bilirubin 0.70 (0.2-1.3) mg/dL AST 37 (17-59) U/L ALT 14 (0-50) U/L Alkaline Phosphatase 101 (38-126) U/L NT-Pro-B Natriuret Pep 167 (0-900) pg/mL Serum Total Protein 6.6 (6.3-8.2) g/dL Albumin 3.3 L (3.5-5.0) g/dL - Progress Progress: unchanged, pain not gone completely Progress Note: 07/14/21 19:54 Medical decision making: This patient wants to go home. I think it is reasonable to attempt outpatient treatment of cellulitis. Patient is afebrile and he does not have an elevated white count. We will provide the patient with an extra dose of Lasix tonight. For the next 2 days he will take an extra nighttime dose of his Lasix. He is also going to call Dr. Rodriguez's office tomorrow morning to make arrangements for a follow-up appointment. We will change his antibiotics to Levaquin once a day for 7 days. Counseled pt/family regarding: lab results, diagnosis, need for follow-up - Departure Departure Disposition: Home Clinical Impression: Cellulitis Condition: Stable Critical Care Time: No Referrals: MOIZ RODRIGUEZ [Primary Care Provider] - Follow up/PCP as directed Additional Instructions: Take your Lasix twice a day for the next 2 days as discussed. Call Dr. Rodriguez's office tomorrow morning to make arrangements for follow-up appointment. Stop your Keflex antibiotics and changed to Levaquin antibiotics daily for 1 week. Return to the emergency department if symptoms worsen. Elevate your legs above the level of your heart when not up and ambulating. Prescriptions: Levofloxacin [Levaquin 500 MG Tablet] 500 mg PO DAILY #7 tablet
[2021-07-14] MEDS ORDERED: Levofloxacin 500MG/100ML D5W 500 MG/100 ML BAG IV STA (17:45)
[2021-07-14] MEDS ORDERED: Lasix 40 MG/4 ML IV ONE (17:46)
[2021-07-14] MEDS ORDERED: Lasix 40 MG/4 ML ONE (18:22)
[2021-07-14] MEDS ORDERED: Levofloxacin 500MG/100ML D5W 500 MG/100 ML BAG IV ONE (18:23)
[2021-07-14 18:28] LABS: Absolute Neutrophil Ct (ANC) 3.04 x10^3/uL (1.4-6.9); Basophil (Absolute #) 0.02 x10^3/uL (0-0.4); Eosinophil % 0.5 % (0.00-5.0); Eosinophil (Absolute #) 0.02 x10^3/uL (0-0.5); Hematocrit 39.7 % (42-50); Hemoglobin 12.5 g/dL (12.5-18.0); Lymphocyte (Absolute #) 0.62 x10^3/uL (1.0-4.6); Lymphocytes % 15.9 % (24.0-44.0); Mean Cell Volume 102.1 fL (78-100); Mean Corpuscular Hemoglobin 32.1 pg (26-32); Mean Corpuscular Hgb Concent. 31.5 g/dL (32-36); Mean Platelet Volume 11.5 fL (7.5-11.0); Monocyte (Absolute #) 0.19 x10^3/uL (0.0-1.3); Monocytes % 4.9 % (0.0-12.0); Neutrophil % 77.9 % (36.0-66.0); Platelet Count 241 x10^3/uL (150-450); Red Blood Count 3.89 x10^6/uL (4.1-5.6); White Blood Count 3.9 x10^3/uL (4.0-10.5)
[2021-07-14 19:00] LABS: ALBUMIN 3.3 g/dL (3.5-5.0); ANION GAP 13.1 MEQ/L (5-15); BILIRUBIN,TOTAL 0.7 mg/dL (0.2-1.3); Creatinine 1 1.33 mg/dL (0.66-1.25); EST GLOMERULAR FILTRATION RATE 56.8 ML/MIN; Potassium 4.8 mmol/L (3.5-5.1); Total Protein 6.6 g/dL (6.3-8.2)
[2021-07-14 20:34] VITALS: BP 100/52; PULSE 102; O2SAT 94
== END 2021-07-14 20:28 | disposition home or self-care (01) ==
LOC: ED 16:17
DX: L03.116 Cellulitis of left lower limb (principal); L03.115 Cellulitis of right lower limb; R60.0 Localized edema; I10 Essential (primary) hypertension; J44.9 Chronic obstructive pulmonary disease, unspecified; E11.9 Type 2 diabetes mellitus without complications; Z72.0 Tobacco use; Z79.84 Long term (current) use of oral hypoglycemic drugs; Z79.899 Other long term (current) drug therapy
CPT/HCPCS: 36000; 36415; 80053; 83880; 85025; 87040; 93005; 93041; 94760; 96374; 99284; J1940; J1956

== ENCOUNTER 2021-08-09 14:21 | Emergency (ER) | payer MEDICARE ==
[2021-08-09] MEDS ORDERED: MORPHINE SULFATE 4 MG INJ IV ONE (15:11)
[2021-08-09] MEDS ORDERED: Zofran 4 MG/2 ML VIAL IV ONE (15:11)
[2021-08-09] MEDS ORDERED: Sodium Chloride 0.9% 1000 ML 1,000 ML IV SCH (15:15)
[2021-08-09] MEDS ORDERED: MORPHINE SULFATE 4 MG INJ ONE (15:18)
[2021-08-09] MEDS ORDERED: Zofran 4 MG/2 ML VIAL ONE (15:18)
[2021-08-09] MEDS ORDERED: Sodium Chloride 0.9% 1000 ML 1,000 ML ONE (15:18)
--- NOTE | 2021-08-09 15:31 | ERPHSYRPT ---
- History of Present Illness Time Seen by Provider: 08/09/21 14:32 Historian: patient Exam Limitations: no limitations Patient Subjective Stated Complaint: Pt seen Dr. Patel yesterday for his cellulitis but was sent to have a ct scan due to abdominal pain and was found to have a bad gall bladder, pt continues to have pain with N&V today and comes here with the hopes of getting it removed Triage Nursing Assessment: Pt brought to the ER by his , tachycardic, hypoxic, placed on 2L NC and oxygen is now 92%, pt states that pain is to the right of his umbilicus and below the ribs, pt's CT from yesterday lists multiple problems, pt vomited on the way to the hospital, skin n/w/d, pulses normal, doesn't appear to be in any distress Physician History: 66 years old morbidly obese male with multiple medical problems including congestive heart failure, chronic respiratory failure secondary to COPD on 4 L oxygen, DVT on Lovenox, diabetes mellitus, lung cancer status post chemoradiation currently in remission presented in the ER with 1 week history of upper abdominal pain on the right side which is gradually worsening. Patient was seen outpatient and has CAT scan done yesterday which showed cholelithiasis with stone in the fundus and one 5.5 mm stone around neck area. This morning started to have nausea and 1 episode of nonprojectile, nonbilious vomiting prior to arrival with worsening pain. No fever or chills reported. Patient has chronic lower extremity swelling and erythema which is not any worse than usual. Timing/Duration: week(s) (1), gradual onset, worse Activities at Onset: rest Quality: sharpness Abdominal Pain Onset Location: RUQ Pain Radiation: no radiation Severity of Pain-Max: moderate Severity of Pain-Current: moderate Modifying Factors: Improves With: nothing Associated Symptoms: nausea, vomiting, No fever/chills Allergies/Adverse Reactions: No Known Drug Allergies Allergy (Verified 08/09/21 14:51) Home Medications: Allopurinol 300 mg [Zyloprim 300 mg] 300 mg PO DAILY 11/01/18 [History] Cholecalciferol (Vitamin D3) [Vitamin D3] 1,000 unit PO DAILY 11/01/18 [History] Metformin HCl 500 mg PO DAILY 11/01/18 [History] Omeprazole 20 mg PO DAILY 11/01/18 [History] Tamsulosin HCl 0.4 mg [Flomax 0.4 MG] 0.4 mg PO DAILY 11/01/18 [History] Enoxaparin Sodium 0.8 ml SQ Q12H 08/02/19 [History] Folic Acid 1 mg PO DAILY 08/02/19 [History] Magnesium Oxide [Magnesium] 400 mg PO DAILY 08/02/19 [History] Furosemide 20 mg [Lasix 20 mg] 40 mg PO DAILY 07/06/21 [History] Spironolactone 25 mg [Aldactone 25 MG] 25 mg PO BID 07/06/21 [History] Sulfamethoxazole/Trimethoprim [Sulfamethoxazole-Tmp Ds Tablet] 1 each PO BID 08/09/21 [History] Hx Tetanus, Diphtheria Vaccination/Date Given: Yes Hx Influenza Vaccination/Date Given: Yes Hx Pneumococcal Vaccination/Date Given: No Travel Risk - International Travel Have you traveled outside of the country in past 3 weeks: No - Coronavirus Screening Are you exhibiting any of the following symptoms?: No Close contact with a COVID-19 positive Pt in past 14-21 Days: No - Vaccine Status Have you recieved a Covid-19 vaccination: Yes [employer] 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: [employer] - Vaccination Dates Date of 2cond Vaccination (if applicable): 08/2020 - Review of Systems Constitutional: No Symptoms Eyes: No Symptoms Ears, Nose, & Throat: No Symptoms Respiratory: Dyspnea, Dyspnea on Exertion (WALKER) Cardiac: No Symptoms Abdominal/Gastrointestinal: Abdominal Pain, Nausea, Vomiting Genitourinary Symptoms: No Symptoms Musculoskeletal: Arthralgias Neurological: No Symptoms Endocrine: No Symptoms Hematologic/Lymphatic: Easy Bruising Immunological/Allergic: No Symptoms - Past Medical History Pertinent Past Medical History: Yes Cardiac History: Hypertension Respiratory History: COPD Endocrine Medical History: Diabetes Type II Musculoskeletal History: Other, Degenerative Disk Disease History: Other Male Reproductive Disorders: Prostate Problems Other Medical History: polycythemiavera, too much protein in urine - Past Surgical History Past Surgical History: Yes Cardiac: Cardiac Catheterization Musculoskeletal: Orthopedic Surgery, Joint Replacement Other Surgical History: knees, shoulders - Social History Smoking Status: Former smoker How long have you smoked: 57 years Exposure to second hand smoke: No Drug Use: none Patient Lives Alone: No - Nursing Vital Signs Nursing Vital Signs: Initial Vital Signs Temperature 97.6 F 08/09/21 14:42 Pulse Rate 106 H 08/09/21 14:42 Blood Pressure 119/72 08/09/21 14:42 O2 Sat by Pulse Oximetry 89 L 08/09/21 14:42 Pain Scale Pain Intensity 3 - Physical Exam General Appearance: no apparent distress, alert Eye Exam: PERRL/EOMI Ears, Nose, Throat Exam: normal ENT inspection Neck Exam: normal inspection, non-tender, supple, full range of motion Respiratory Exam: diminished breath sounds, wheezing Cardiovascular Exam: regular rate/rhythm, normal heart sounds Gastrointestinal/Abdomen Exam: soft, tenderness (Hypoactive bowel sounds), guarding (Right upper quadrant with positive Coleman sign), No normal bowel sounds Back Exam: normal inspection Extremity Exam: normal inspection, normal range of motion Neurologic Exam: alert, oriented x 3, cooperative Skin Exam: normal color SpO2 Interpretation: O2 applied SpO2: 93 O2 Delivery: Nasal Cannula Ordered Tests: Active Orders 24 hr Category Date Time Status IV Insertion STAT Care 08/09/21 15:11 Active NPO (ED) STAT Care 08/09/21 15:11 Active BLOOD CULTURE Stat Lab 08/09/21 15:30 Received CBC W DIFF Stat Lab 08/09/21 15:20 Completed CMP Stat Lab 08/09/21 15:20 Completed LIPASE Stat Lab 08/09/21 15:20 Completed Lactic Acid Stat Lab 08/09/21 15:50 Completed PT INR [PROTIME WITH INR] Stat Lab 08/09/21 15:20 Completed PTT Stat Lab 08/09/21 15:20 Completed UA W/RFX CULTURE Stat Lab 08/09/21 15:55 Completed Medication Summary Generic Name Dose Route Start Last Admin Trade Name Freq PRN Reason Stop Dose Admin Sodium Chloride 1,000 mls @ 125 mls/hr 08/09/21 15:15 08/09/21 15:21 Sodium Chloride 0.9% 1000 Ml IV 09/08/21 15:14 125 mls/hr .Q8H NICK Administration Piperacillin Sod/Tazobactam 100 mls @ 200 mls/hr 08/09/21 17:02 08/09/21 17:12 Sod 3.375 gm/ Sodium Chloride IV 08/09/21 17:31 200 mls/hr STAT ONE Administration Discontinued Medications Generic Name Dose Route Start Last Admin Trade Name Freq PRN Reason Stop Dose Admin Sodium Chloride Confirm 08/09/21 17:05 Sodium Chloride 100ml Mini-Bag Plus Administered 08/09/21 17:06 Dose 100 mls @ ud IV .STK-MED ONE Morphine Sulfate 4 mg 08/09/21 15:11 08/09/21 15:21 Morphine Sulfate 4 Mg/Ml Injection IV 08/09/21 15:12 4 mg STAT ONE Administration Morphine Sulfate Confirm 08/09/21 15:18 Morphine Sulfate 4 Mg/Ml Injection Administered 08/09/21 15:19 Dose 4 mg .ROUTE .STK-MED ONE Ondansetron HCl 4 mg 08/09/21 15:11 08/09/21 15:21 Ondansetron Hcl 4 Mg/2 Ml Vial IV 08/09/21 15:12 4 mg STAT ONE Administration Ondansetron HCl Confirm 08/09/21 15:18 Ondansetron Hcl 4 Mg/2 Ml Vial Administered 08/09/21 15:19 Dose 4 mg .ROUTE .STK-MED ONE Piperacillin Sod/Tazobactam Sod Confirm 08/09/21 17:04 Piperacillin/Tazobactam Sodium 3.375 Gm Vial Administered 08/09/21 17:05 Dose 3.375 gm IV .STK-MED ONE Lab/Rad Data: Laboratory Result Diagrams 08/09/21 15:20 08/09/21 15:20 Laboratory Results 08/09/21 08/09/21 08/09/21 Range/Units 15:55 15:50 15:20 WBC (4.0-10.5) x10^3/uL RBC (4.1-5.6) x10^6/uL Hgb (12.5-18.0) g/dL Hct (42-50) % MCV (78-100) fL MCH (26-32) pg MCHC (32-36) g/dL RDW (11.5-14.0) % Plt Count (150-450) x10^3/uL MPV (7.5-11.0) fL Gran % (36.0-66.0) % Immature Gran % (Auto) (0.00-0.4) % Nucleat RBC Rel Count (0.00-0.1) % Eos # (Auto) (0-0.5) x10^3/uL Immature Gran # (Auto) (0.00-0.03) x10^3u/L Absolute Lymphs (auto) (1.0-4.6) x10^3/uL Absolute Monos (auto) (0.0-1.3) x10^3/uL Absolute Nucleated RBC (0.00-0.01) x10^3u/L Lymphocytes % (24.0-44.0) % Monocytes % (0.0-12.0) % Eosinophils % (0.00-5.0) % Basophils % (0.0-0.4) % Absolute Granulocytes (1.4-6.9) x10^3/uL Basophils # (0-0.4) x10^3/uL PT 11.1 (9.4-12.5) SECONDS INR 1.05 (0.8-3.0) APTT 35.6 (25.1-36.5) SECONDS Sodium (137-145) mmol/L Potassium (3.5-5.1) mmol/L Chloride (98-107) mmol/L Carbon Dioxide (22-30) mmol/L Anion Gap (5-15) MEQ/L BUN (9-20) mg/dL Creatinine (0.66-1.25) mg/dL Estimated GFR ML/MIN Glucose (74-106) mg/dL Lactic Acid 2.1 H (0.4-2.0) Calcium (8.4-10.2) mg/dL Total Bilirubin (0.2-1.3) mg/dL AST (17-59) U/L ALT (0-50) U/L Alkaline Phosphatase (38-126) U/L Serum Total Protein (6.3-8.2) g/dL Albumin (3.5-5.0) g/dL Lipase (23-300) U/L Urinalys Dipstick Clnc MAIN LAB Urine Color YELLOW (YELLOW) Urine Appearance CLEAR (CLEAR) Urine pH 5.5 (5-6) Ur Specific [place] 1.015 (1.005-1.025) POC Urine Protein Conf NEGATIVE (Negative) Urine Ketones NEGATIVE (NEGATIVE) Urine Nitrite NEGATIVE (NEGATIVE) Urine Bilirubin NEGATIVE (NEGATIVE) Urine Urobilinogen 0.2 (0-1) mg/dL Urine Leukocytes NEGATIVE (NEGATIVE) Urine WBC (Auto) NONE (0-5) /HPF Urine RBC (Auto) NONE (0-2) /HPF U Hyaline Cast (Auto) 11-25 (0-2) /LPF U Epithel Cells (Auto) RARE (FEW) /HPF Urine Bacteria (Auto) NONE (NEGATIVE) /HPF Urine RBC NEGATIVE (0-5) Trevor/ul Other Casts (Auto) 25-50 (NEGATIVE) /LPF Urine Mucus (Auto) SLIGHT (NEGATIVE) /HPF Ur Culture Indicated? NO Urine Glucose NEGATIVE (NEGATIVE) mg/dL 08/09/21 08/09/21 Range/Units 15:20 15:20 WBC 3.3 L (4.0-10.5) x10^3/uL RBC 3.28 L (4.1-5.6) x10^6/uL Hgb 10.3 L (12.5-18.0) g/dL Hct 33.0 L (42-50) % MCV 100.6 H (78-100) fL MCH 31.4 (26-32) pg MCHC 31.2 L (32-36) g/dL RDW 14.7 H (11.5-14.0) % Plt Count 143 L (150-450) x10^3/uL MPV 11.1 H (7.5-11.0) fL Gran % 58.1 (36.0-66.0) % Immature Gran % (Auto) 1.5 H (0.00-0.4) % Nucleat RBC Rel Count 0.0 (0.00-0.1) % Eos # (Auto) 0 (0-0.5) x10^3/uL Immature Gran # (Auto) 0.05 H (0.00-0.03) x10^3u/L Absolute Lymphs (auto) 0.73 L (1.0-4.6) x10^3/uL Absolute Monos (auto) 0.61 (0.0-1.3) x10^3/uL Absolute Nucleated RBC 0.00 (0.00-0.01) x10^3u/L Lymphocytes % 22.0 L (24.0-44.0) % Monocytes % 18.4 H (0.0-12.0) % Eosinophils % 0.0 (0.00-5.0) % Basophils % 0.0 (0.0-0.4) % Absolute Granulocytes 1.93 (1.4-6.9) x10^3/uL Basophils # 0 (0-0.4) x10^3/uL PT (9.4-12.5) SECONDS INR (0.8-3.0) APTT (25.1-36.5) SECONDS Sodium 136 L (137-145) mmol/L Potassium 4.0 (3.5-5.1) mmol/L Chloride 102 (98-107) mmol/L Carbon Dioxide 25 (22-30) mmol/L Anion Gap 13.0 (5-15) MEQ/L BUN 23 H (9-20) mg/dL Creatinine 1.54 H (0.66-1.25) mg/dL Estimated GFR 48.0 ML/MIN Glucose 129 H (74-106) mg/dL Lactic Acid (0.4-2.0) Calcium 8.7 (8.4-10.2) mg/dL Total Bilirubin 0.30 (0.2-1.3) mg/dL AST 23 (17-59) U/L ALT 9 (0-50) U/L Alkaline Phosphatase 139 H (38-126) U/L Serum Total Protein 7.0 (6.3-8.2) g/dL Albumin 3.3 L (3.5-5.0) g/dL Lipase 120 (23-300) U/L Urinalys Dipstick Clnc Urine Color (YELLOW) Urine Appearance (CLEAR) Urine pH (5-6) Ur Specific [place] (1.005-1.025) POC Urine Protein Conf (Negative) Urine Ketones (NEGATIVE) Urine Nitrite (NEGATIVE) Urine Bilirubin (NEGATIVE) Urine Urobilinogen (0-1) mg/dL Urine Leukocytes (NEGATIVE) Urine WBC (Auto) (0-5) /HPF Urine RBC (Auto) (0-2) /HPF U Hyaline Cast (Auto) (0-2) /LPF U Epithel Cells (Auto) (FEW) /HPF Urine Bacteria (Auto) (NEGATIVE) /HPF Urine RBC (0-5) Trevor/ul Other Casts (Auto) (NEGATIVE) /LPF Urine Mucus (Auto) (NEGATIVE) /HPF Ur Culture Indicated? Urine Glucose (NEGATIVE) mg/dL - Progress Progress: improved, pain not gone completely, re-examined Progress Note: 08/09/21 17:30 66 years old is evaluated for right-sided abdominal pain with vomiting. Patient has a CT done yesterday showing cholelithiasis. Given symptomatic treatment for pain, on reevaluation feeling better. Started on gentle hydration because patient has CHF. Work-up showed white count of 3.3, hemoglobin of 10.3 and normal liver enzymes with total bili. Creatinine of 1.5 which is close to his baseline. Given a dose of Zosyn. Discussed with Dr. Sadia Escoto, recommended transfer to facility with multi speciality services including pulmonology for postop care. Discussed with Dr. Fried at [facility], reviewed history, work-up and CT findings, agreed for transfer. Plan discussed with patient and family who understand and agree with it. Patient was a little upset that why we cannot take care of him in here and my not so quickly. He is counseled about him being on Lovenox it needs a little time before he can be taken to the OR and this hospital is not well equipped with dealing this kind of emergency. Discussed with Dr.: Marcello, Other (Dr. Fried [facility]) Counseled pt/family regarding: lab results, diagnosis, rad results - Departure Departure Disposition: Transfer Clinical Impression: Acute calculous cholecystitis Condition: Stable Critical Care Time: No Referrals: MOIZ PATEL [Primary Care Provider] - Follow up/PCP as directed
[2021-08-09 15:49] LABS: Absolute Neutrophil Ct (ANC) 1.93 x10^3/uL (1.4-6.9); Basophil (Absolute #) 0 x10^3/uL (0-0.4); Eosinophil (Absolute #) 0 x10^3/uL (0-0.5); Hemoglobin 10.3 g/dL (12.5-18.0); Lymphocyte (Absolute #) 0.73 x10^3/uL (1.0-4.6); Mean Cell Volume 100.6 fL (78-100); Mean Corpuscular Hemoglobin 31.4 pg (26-32); Mean Corpuscular Hgb Concent. 31.2 g/dL (32-36); Mean Platelet Volume 11.1 fL (7.5-11.0); Monocyte (Absolute #) 0.61 x10^3/uL (0.0-1.3); Monocytes % 18.4 % (0.0-12.0); Neutrophil % 58.1 % (36.0-66.0); Platelet Count 143 x10^3/uL (150-450); Red Blood Count 3.28 x10^6/uL (4.1-5.6); Red Cell Distribution Width 14.7 % (11.5-14.0); White Blood Count 3.3 x10^3/uL (4.0-10.5)
[2021-08-09 15:55] LABS: ALBUMIN 3.3 g/dL (3.5-5.0); BILIRUBIN,TOTAL 0.3 mg/dL (0.2-1.3); Calcium 8.7 mg/dL (8.4-10.2); Creatinine 1 1.54 mg/dL (0.66-1.25)
[2021-08-09 16:14] LABS: Epithelial Cells RARE /HPF (FEW); Mucus SLIGHT /HPF (NEGATIVE)
[2021-08-09 16:16] LABS: Appearance CLEAR (CLEAR); Bilirubin NEGATIVE (NEGATIVE); Dipstick done @ ? MAIN LAB; Glucose NEGATIVE (NEGATIVE); Ketones NEGATIVE (NEGATIVE); Nitrite NEGATIVE (NEGATIVE); Ph 5.5 (5-6); Protein,Urine Dip NEGATIVE (Negative); RBC NEGATIVE Ery/ul (0-5); Specific Gravity 1.015 (1.005-1.025); Urobilinogen 0.2 mg/dL (0-1)
[2021-08-09 16:21] LABS: Urine Cultured Indicated? NO
[2021-08-09 16:53] LABS: INR 1.05 (0.8-3.0); PROTIME 11.1 SECONDS (9.4-12.5); PTT 35.6 SECONDS (25.1-36.5)
[2021-08-09] MEDS ORDERED: PIPERACILLIN/TAZOBACTAM 3.375 GM in Sodium Chloride 100ML MINI-BAG PLUS 100 ML IV ONE (17:02)
[2021-08-09] MEDS ORDERED: PIPERACILLIN/TAZOBACTAM IV ONE (17:04)
[2021-08-09] MEDS ORDERED: Sodium Chloride 100ML MINI-BAG PLUS 100 ML IV ONE (17:05)
[2021-08-09 17:33] VITALS: O2SAT 93
[2021-08-09 18:04] VITALS: BP 84/68; PULSE 94
== END 2021-08-09 17:50 | disposition short-term general hospital (02) ==
LOC: ED 14:21
DX: K80.00 Calculus of gallbladder with acute cholecystitis without obstruction (principal); R10.11 Right upper quadrant pain; R11.2 Nausea with vomiting, unspecified; J96.10 Chronic respiratory failure, unspecified whether with hypoxia or hypercapnia; Z99.81 Dependence on supplemental oxygen; J44.9 Chronic obstructive pulmonary disease, unspecified; E11.9 Type 2 diabetes mellitus without complications; I11.0 Hypertensive heart disease with heart failure; I50.9 Heart failure, unspecified; Z79.84 Long term (current) use of oral hypoglycemic drugs; Z79.899 Other long term (current) drug therapy
CPT/HCPCS: 36000; 36415; 80053; 81015; 83605; 83690; 85025; 85610; 85730; 87040; 96365; 96374; 96375; 99285; J2270; J2405